=== PATIENT | female | born 1965 | race Caucasian/White ===

== ENCOUNTER 2017-06-17 01:37 | Inpatient (IN) | payer BC ==
[~2017-06-17] VITALS: Ht 170.2 cm; Wt 121.6 kg
[2017-06-17] MEDS ORDERED: diphenhydrAMINE HCL 50 MG/ML VIAL IM ONE (02:15)
[2017-06-17] MEDS ORDERED: OLANZapine IM 10 MG VIAL IM ONE (02:15)
[2017-06-17 02:32] LABS: AUTOMATED NEUTROPHIL # 5.3 TH/MM3 (1.8-7.7); BASOPHIL # 0.1 TH/MM3 (0-0.2); BASOPHIL % 0.9 % (0.0-2.0); EOSINOPHIL # 0.2 TH/MM3 (0-0.4); HEMATOCRIT 38.9 % (35.0-46.0); HEMOGLOBIN 13.7 GM/DL (11.6-15.3); LYMPH % 33.8 % (9.0-44.0); LYMPHOCYTE # 3.3 TH/MM3 (1.0-4.8); MEAN CELL VOLUME 89.1 FL (80.0-100.0); MEAN CORPUSCULAR HEMOGLOBIN 31.3 PG (27.0-34.0); MEAN CORPUSCULAR HGB CONC 35.1 % (32.0-36.0); MEAN PLATELET VOLUME 7.9 FL (7.0-11.0); MONO % 8.8 % (0.0-8.0); MONOCYTE # 0.8 TH/MM3 (0-0.9); NEUT % 54.5 % (16.0-70.0); PLATELET COUNT 333 TH/MM3 (150-450); RED BLOOD COUNT 4.36 MIL/MM3 (4.00-5.30); WHITE BLOOD COUNT 9.7 TH/MM3 (4.0-11.0)
[2017-06-17] MEDS ORDERED: BUPR150CR PO (02:37)
[2017-06-17] MEDS ORDERED: VIST25CA PO (02:37)
[2017-06-17] MEDS ORDERED: CETI10 PO (02:37)
[2017-06-17 02:51] LABS: ALBUMIN 4.1 GM/DL (3.4-5.0); ALT (GPT) 54 U/L (10-53); AST (GOT) 42 U/L (15-37); BICARBONATE 22.5 MEQ/L (21.0-32.0); BLOOD UREA NITROGEN 14 MG/DL (7-18); CALCIUM 8.9 MG/DL (8.5-10.1); CHLORIDE 107 MEQ/L (98-107); CREATININE 0.89 MG/DL (0.50-1.00); GLOMERULAR FILTRATION RATE 67 ML/MIN (>89); GLUCOSE,RANDOM 168 MG/DL (74-106); SODIUM (NA) 140 MEQ/L (136-145)
[2017-06-17 02:54] LABS: ALKALINE PHOSPHATASE 108 U/L (45-117); TOTAL BILIRUBIN ADULT 0.4 MG/DL (0.2-1.0); TOTAL PROTEIN 8.4 GM/DL (6.4-8.2)
--- NOTE | 2017-06-17 03:24 | PD ---
HPI Chief Complaint: Psychiatric Symptoms Time Seen by Provider: 01:52 Travel History International Travel<30 days: No Contact w/Intl Traveler<30days: No Traveled to known affect area: No History of Present Illness HPI 51-year-old white female presents to emergency department accompanied by her mother and sister for evaluation. According to family and the patient they had just come to [facility] this past week to visit with her sister. Prior to leaving [place] the patient had been noting to be not sleeping. She has been hypervigilant. She has progressively gotten more agitated, and psychotic. She is now talking erratically, having flight of ideas, and flapping her arms as if she is a Bird. The patient here is acutely psychotic and confused. The patient is not making much sense. Any significant history is not obtainable at this time. [facility] Past Medical History Narrative Medical Chronic back pain, depression, anxiety, Tetanus Vaccination: < 5 Years ?: Not Past Surgical History Narrative Surgical Lumbar nerve stimulator, bilateral myringotomy tubes Ear Surgery: Yes Other Surgery: Yes Social History Alcohol Use: No Tobacco Use: No Substance Use: No (PER FAMILY) Allergies-Medications (Allergen,Severity, Reaction): Coded Allergies: No Known Allergies (Unverified , 06/17/17) Reported Meds & Prescriptions Reported Meds & Active Scripts Active Reported Wellbutrin SR 12 HR (Bupropion HCl) 150 Mg Tab 150 Mg PO Q12HR Cetirizine (Cetirizine HCl) 10 Mg Tab 10 Mg PO DAILY Vistaril (Hydroxyzine Pamoate) 25 Mg Cap 25 Mg PO TID PRN Review of Systems ROS Limitations: Psychotic Physical Exam Narrative GENERAL: Well-nourished, well-developed patient. SKIN: Warm and dry. HEAD: Normocephalic and atraumatic. EYES: No scleral icterus. No injection or drainage. ENT: No nasal drainage noted. Mucous membranes pink. Airway patent. NECK: Supple, trachea midline. Moves head freely without obvious discomfort. CARDIOVASCULAR: Regular rate and rhythm without murmurs, gallops, or rubs. RESPIRATORY: Breath sounds equal bilaterally. No accessory muscle use. GASTROINTESTINAL: Abdomen soft, non-tender, nondistended. EXTREMITIES: No cyanosis or edema. BACK: Nontender without obvious deformity. No CVA tenderness. NEURO: Patient is alert and oriented. no sensorimotor deficits. Nonfocal. Normal speech. PSYCH: Acutely bizarre and psychotic Data Data Orders Orders Complete Blood Count With Diff (06/17/17 02:09) Comprehensive Metabolic Panel (06/17/17 02:09) Urinalysis - C+S If Indicated (06/17/17 02:09) Ed Urine Pregnancytest Poc (06/17/17 02:09) Psych Screen (06/17/17 02:09) Drug Screen, Random Urine (06/17/17 02:09) Alcohol (Ethanol) (06/17/17 02:09) Olanzapine Inj (Zyprexa Inj) (06/17/17 02:15) Diphenhydramine Inj (Benadryl Inj) (06/17/17 02:15) Labs Laboratory Tests Test 06/17/17 02:20 White Blood Count 9.7 TH/MM3 Red Blood Count 4.36 MIL/MM3 Hemoglobin 13.7 GM/DL Hematocrit 38.9 % Mean Corpuscular Volume 89.1 FL Mean Corpuscular Hemoglobin 31.3 PG Mean Corpuscular Hemoglobin Concent 35.1 % Red Cell Distribution Width 13.0 % Platelet Count 333 TH/MM3 Mean Platelet Volume 7.9 FL Neutrophils (%) (Auto) 54.5 % Lymphocytes (%) (Auto) 33.8 % Monocytes (%) (Auto) 8.8 % Eosinophils (%) (Auto) 2.0 % Basophils (%) (Auto) 0.9 % Neutrophils # (Auto) 5.3 TH/MM3 Lymphocytes # (Auto) 3.3 TH/MM3 Monocytes # (Auto) 0.8 TH/MM3 Eosinophils # (Auto) 0.2 TH/MM3 Basophils # (Auto) 0.1 TH/MM3 CBC Comment DIFF FINAL Differential Comment MDM Medical Decision Making Medical Screen Exam Complete: Yes Emergency Medical Condition: Yes Medical Record Reviewed: Yes Differential Diagnosis MDM: High Differential diagnoses: Schizophrenia, schizoaffective disorder, bipolar, anxiety, depression, adjustment reaction, mood disorder NOS, ODD, depressive disorder NOS, dementia, dementia with agitation, psychosis NOS, substance induced mood disorder, DMDD, Asperger syndrome, infection,electrolyte abnormality, malingering. Narrative Course Mental health screening discussed with the patient. Psychiatric screen ordered. The patient is acutely psychotic. She is placed under Butts act to ensure patient's safety. She does not have the capacity to sign in voluntarily today. The patient is medicated with Zyprexa 10 mg IM and Benadryl 50 mg IM. The patient has been medically cleared. This is bipolar manic phase with psychosis Diagnosis Primary Impression: Bipolar affective disorder, current episode manic with psychotic symptoms Additional Impression: Medical clearance for psychiatric admission Condition: Espinoza Wolf Jun 17, 2017 03:24
[2017-06-17 04:22] VITALS: BP 115/56; PULSE 78; RESP 15; O2SAT 98
[2017-06-17] MEDS ORDERED: BENZTROPINE MESYLATE 2 MG/2 ML VIAL IM PRN (04:45)
[2017-06-17] MEDS ORDERED: BENZTROPINE MESYLATE 1 MG TAB PO PRN (04:45)
[2017-06-17] MEDS ORDERED: ALUMINUM/MAGNESIUM/SIMETH 30 ML CUP PO PRN (04:45)
[2017-06-17] MEDS ORDERED: ACETAMINOPHEN 325 MG TAB PO PRN (04:45)
[2017-06-17] MEDS ORDERED: NICOTINE 21 MG/24 HR PATCH T-DERMAL PRN (04:45)
[2017-06-17] MEDS ORDERED: MAGNESIUM HYDROXIDE SUSP 30 ML CUP PO PRN (04:45)
[2017-06-17 05:04] LABS: BILIRUBIN, URINE NEG (NEG); BLOOD, URINE NEG (NEG); GLUCOSE,URINE NEG (NEG); KETONE, URINE 40 mg/dL (NEG); MUCUS URINE FEW /lpf (OCC); NITRITE,URINE NEG (NEG); SQUAMOUS EPITHELIAL CELL URINE 2 /hpf (0-5); URINE COLOR YELLOW (YELLW/STRAW); URINE LEUKOCYTE ESTERASE NEG (NEG)
[2017-06-17 05:55] VITALS: BP 146/85; PULSE 88; RESP 18; TEMP 98.1
[2017-06-17] MEDS: REMOVE OLD PATCH T-DERMAL SCH (09:00)
--- NOTE | 2017-06-17 12:52 | HHI.HP ---
Provisional Diagnosis Admission Date Jun 17, 2017 at 04:36 [place] I. 1. Brief psychotic disorder, rule-out catatonic excitement Rule-out mood disorder with psychotic features such as bipolar disorder Rule-out psychosis due to C Rule-out psychosis due to a substance Rule-out primary psychotic disorder [place] II. Deferred Certification of Person's Competence To Provide Express and Informed Consent I have personally examined Shanta Prajapati , a person being served at [facility] on, Jun 17, 2017 12:52. Express and informed consent means consent voluntarily given in writing, by a competent person, after sufficient explanation and disclosure of the subject matter involved to enable the person to make a knowing and willful decision without any element of force, fraud, deceit, duress, or other form of constraint or coercion. This person is 18 years of age or older, is not now known to be incompetent to consent to treatment with a guardian advocate, and does not have a health care surrogate or proxy currently making medical treatment decisions. I have found this person to be one of the following: [] Competent to provide express and informed consent, as defined above, for voluntary admission to this facility and is competent to provide express and informed consent for treatment. He/she has the consistent capacity to make well reasoned, willful, and knowing decisions concerning his or her medical or mental health treatment. The person fully and consistently understands the purpose of the admission for examination/placement and is fully capable of personally exercising all rights assured [place] [x] Incompetent to provide express and informed consent to voluntary admission, and this is incompetent to provide express and informed consent to treatment. The person must be transferred to involuntary status and a petition for a guardian advocate filed with the Circuit Court. [] Refusing to provide express and informed consent to voluntary admission but is competent to provide express and informed consent for treatment. The person must be discharged or transferred to involuntary status. Form shall be completed within 24 hours of a person's arrival at the receiving facility and filed in the clinical record of each person: 1. Admitted on a voluntary basis 2. Permitted to provide express and informed consent to his/her own treatment 3. Allowed to transfer from involuntary to voluntary status 4. Prior to permitting a person to consent to his or her own treatment after having been previously found incompetent to consent to treatment. History of Present Illness Capacity: Lacks Capacity Psych Chief Complaint: psychosis/behavioral disorganization HPI Ms. Prajapati is a 51-year-old female with no known past psychiatric history who was brought into the ED by her family for psychiatric evaluation. Per the ED provider's note, patient's behavior has been deteriorating over the last week or so. Patient was Butts acted by the ED provider and admitted to the inpatient psychiatric unit. Reviewing the electronic medical record, I note this is patient's first visit to [place]. Patient seen and examined with nurse. Chart reviewed. Case discussed with nursing staff who reports the patient has been confused and frankly psychotic. She has been flapping her arms like wings on the unit. On my evaluation today, the patient is wandering around the unit in a dreamlike state. Affect is quite labile, and the patient becomes tearful at intervals for no discernible reason. She gesticulates with her arm as if performing semaphore while saying "international lifestyles of the famous, hurricane, stimulator." Patient appears internally stimulated, and when I ask about AVH, patient only replies " I need less color." She denies SI/HI but seems unreliable to contract for safety in her present state. Thought process exceedingly disorganized, and it is difficult to ascertain whether there is delusional material underlying as a consequence of her degree of thought disorganization. In addition to the gesticulation with her arms, she is noted to wander around the unit backwards. She gives the date as "years" and the location as [place] Psychiatric interview is severely limited by her degree of thought disorganization. I am unable to obtain any past psychiatric, family, chemical dependency or social history from this patient at this time as a consequence of her thought disorganization. She does not verbalize any physical complaints. Given the patient's degree of psychiatric impairment, I endeavor first to obtain collateral information from her mother at the number listed in the EMR. I have left a generic voicemail requesting a call back. I then endeavored to reach out to the patient's sister Lorraine. Lorraine reports that the patient has no psychiatric history to speak of and had been in her usual state of health until about a week ago. She began to sleep poorly and speak more rapidly. She began to exhibit the gesticulating behaviors around Thursday of this week. Yesterday, patient became obsessed with the electronics in Lorraine's home, with whom she had been staying, and told Lorraine that she believed that there were security devices in the [facility]. Lorraine noted patient was frankly responding to internal stimuli. No recent med changes. Patient has been on Wellbutrin in the past for smoking cessation and hydroxyzine for dermatologic issues. Lorraine does not suspect substance use in patient. Patient has a paternal aunt who was institutionalized and a niece with epilepsy. She has no personal history of MS, seizure or other neurologic or medical conditions besides having a spinal stimulator for back pain and unilateral deafness. Lorraine is agreeable to serving as HCS and is agreement with plan as outlined below. Review of Systems ROS Limitations: Altered Mental Status, Psychotic, Poor Historian Other Limited ROS because of mental status. Past Psych History Psychological trauma history Unable to obtain given thought disorganization. Violence risk - others (6 mos) Concern for elevated risk. Possible catatonic excitement renders patient unpredictable. Violence risk - self (6 mos) Concern for elevated risk. Possible catatonic excitement renders patient unpredictable. Concern also for self-care deficit in current state. Substance Abuse History Drugs/Alcohol past 12 months Unable to obtain from patient given thought disorganization Past Family Social History Coded Allergies: No Known Allergies (Unverified , 06/17/17) Past Medical History See EMR. PMH as provided by sister, above. Reported Medications Bupropion HCl ER 12 HR (Wellbutrin SR 12 HR) 150 Mg Tab, 150 MG PO Q12HR for Control Depression, TAB 0 Refills 06/17/17 Cetirizine (Cetirizine) 10 Mg Tab, 10 MG PO DAILY for Allergies, TAB 0 Refills 06/17/17 Hydroxyzine Pamoate (Vistaril) 25 Mg Cap, 25 MG PO TID Y for ANXIETY, CAP 0 Refills 06/17/17 Current Medications Medications (Trade) Dose Ordered Sig/Yari Route Start Time Stop Time Status Last Admin (Ativan) 1 mg Q6H PRN PO 06/17/17 04:45 (Ativan Inj) 1 mg Q6H PRN IM 06/17/17 04:45 (Benadryl) 50 mg HS PRN PO 06/17/17 04:45 (Tylenol) 650 mg Q4H PRN PO 06/17/17 04:45 (Milk Of Magnesia Liq) 30 ml DAILY PRN PO 06/17/17 04:45 (Mag-Al Plus Susp Liq) 30 ml Q6H PRN PO 06/17/17 04:45 (Habitrol 21 Mg Patch.24 Hr) 1 patch DAILY PRN T-DERMAL 06/17/17 04:45 (Cogentin) 1 mg Q12H PRN PO 06/17/17 04:45 (Cogentin Inj) 1 mg Q12H PRN IM 06/17/17 04:45 Miscellaneous Information 1 DAILY T-DERMAL 06/17/17 09:00 Family Psych History Unable to obtain from patient given thought disorganization Social History Unable to obtain from patient given thought disorganization Patient's Strengths (min. 2) In a monitored setting. Supportive family. Physical Exam Physical examination completed by ED provider. On my examination today, the patient appears to be in no acute physical distress. She exhibits seemingly purposeless movements as noted above but displays no posturing, no stupor, no negativism. No other motor abnormalities noted. Labs and vitals reviewed: Vital Signs Vital Signs Date Time Temp Pulse Resp B/P (MAP) Pulse Ox O2 Delivery O2 Flow Rate FiO2 06/17/17 05:55 98.1 88 18 146/85 (105) 06/17/17 04:22 98 Room Air Lab Results Item Value Date Time White Blood Count 9.7 TH/MM3 06/17/17 022 Hemoglobin 13.7 GM/DL 06/17/17 022 Platelet Count 333 TH/MM3 06/17/17 022 Erythrocyte Sedimentation Rate 11 mm/hr 06/17/17 022 Sodium Level 140 MEQ/L 06/17/17 022 Potassium Level 3.8 MEQ/L 06/17/17 022 Chloride Level 107 MEQ/L 06/17/17 022 Carbon Dioxide Level 22.5 MEQ/L 06/17/17 022 Blood Urea Nitrogen 14 MG/DL 06/17/17 022 Creatinine 0.89 MG/DL 06/17/17 022 Estimat Glomerular Filtration Rate 67 ML/MIN L 06/17/17 0220 Aspartate Amino Transf (AST/SGOT) 42 U/L H 06/17/17 0220 Alanine Aminotransferase (ALT/SGPT) 54 U/L H 1/17/18 0220 Alkaline Phosphatase 108 U/L 06/17/17219 Vitamin B12 Level 364 PG/ML 06/17/17219 25-Hydroxy Vitamin D Total 17.0 ng/ML L 06/17/17219 Urine Opiates Screen NEG 06/17/17454 Urine Barbiturates Screen NEG 06/17/17454 Urine Amphetamines Screen NEG 06/17/17454 Urine Benzodiazepines Screen NEG 06/17/17454 Urine Cocaine Screen NEG 06/17/17454 Urine Cannabinoids Screen NEG 06/17/17454 Ethyl Alcohol Level LESS THAN 3 MG/DL 06/17/17219 Labs reviewed. Urinalysis planned. No head imaging obtained. ED [id number]-[id number] test negative. Mental Status Examination Appearance: Disheveled Consciousness: Alert Orientation: Person Motor Activity: Other (motor exam as noted above) Speech: Incoherent Language: Perseveration Fund of Knowledge: Inadequate Attention and Concentration: Inadequate Memory: Impaired (not formally assessed but suspect psychosis interferes) Mood: Other (unable to assess as patient cannot communicate her mental state) Affect: Labile Thought Process & Associations: Disorganized Thought Content: Bizarre thinking Hallucination Type: Other (appears frankly internally stimulated) Delusion Type: Other (unable to ascertain because of degree of thought disorganization) Suicidal Ideation: No (unreliable to contract for safety) Homicidal Ideation: No (unreliable to contract for safety) Insight: Poor Judgment: Poor Assessment & Plan Problem List: (1) Brief psychotic disorder ICD Codes: F23 - Brief psychotic disorder Assessment & Plan 51-year-old female with history as detailed above brought in voluntarily by family for psychiatric evaluation, now under Butts act. On my examination today, patient presents with markedly disorganized thought and behavior with associated affective lability. Collateral from patient's sister indicates decompensation over the last week or so. Differential diagnosis for current symptomatology includes mood disorder with psychotic features, psychosis due to general medical or neurological condition, psychosis due to a substance, primary psychotic disorder. It is also possible that the patient is experiencing catatonic excitement in the setting of one of the above disorders. I think it is prudent to pursue further workup before initiating a course of treatment and will plan to admit the patient to the inpatient psychiatric unit for this purpose as well as for stabilization and safety. --Admit inpatient --Involuntary status. I have completed first opinion. Consult for second opinion. Request healthcare surrogate and guardian advocate. --Hold off on scheduled psychotropics at this time pending further workup. --Initiate medical/neurological workup for patient's symptoms. I have already ordered laboratory work including an extended urine toxicology screen, ammonia, TRINI, HIV, RPR, hepatitis screen and CK. I checked with the laboratory and these were not drawn, possibly because the patient refused. I have obtained permission from the patient's healthcare surrogate to temporarily restrain the patient to obtain laboratories if needed, and I have asked the laboratory to send a zigzag stitcher around to try to get these labs. --Check EEG. Check MRI brain with and without contrast. --Consult to neurology to assess for possible neurological causes for patient's symptoms. --Check EKG for QTc. --Ativan as needed for anxiety, Cogentin as needed for EPS, Benadryl as needed for sleep --Vitals every shift --Counselor to see and obtain further collateral --Disposition planning --Estimated length of stay: 7-9 days Discharge Planning Pending psychiatric stabilization Request HC Surrog/Guard Advoc?: Yes Brandan Stephens MD Jun 17, 2017 12:52
[2017-06-17] MEDS: LORazepam 2 MG/ML VIAL IM PRN (19:41)
--- NOTE | 2017-06-17 22:45 | MB ---
cc: DEBBIE CRUZ M.D. DATE OF CONSULTATION 06/17/2017 DATE OF 1965, 51 years old REASON FOR CONSULTATION Possible seizure. HISTORY OF THE PRESENT ILLNESS The patient's history taken from the chart. She is not able to give me an appropriate history, very confused and disorganized thought. But she is a 51-year-old woman with a known history of psychiatric illness. Apparently deteriorating over the last week. Butts Acted. The patient is actually in the day room now. She is ____ and talking to other residents here, making no sense whatsoever. Laughing, gesticulating. Cannot get any history from her. PAST MEDICAL HISTORY Unable to obtain. SOCIAL HISTORY Unknown. FAMILY HISTORY Unknown. MEDICATIONS Current meds are: 1. Bupropion. 2. Cetirizine. 3. Hydroxyzine. 4. Lorazepam. 5. Magnesium. 6. Nicotine patch. 7. Cogentin. She is not on the cetirizine here. And no longer on olanzapine. PHYSICAL EXAMINATION VITAL SIGNS: Her vitals temperature 98.1, pulse 88, respiratory rate 18, blood pressure 146/85. GENERAL: She is awake and alert. She can tell me her name but she is talking about things that make absolutely no sense. She is walking around the unit. NEUROLOGIC: Pupils reactive. Face symmetrical. Poor oral hygiene. Motor olivera no deficits. Gait normal. LABORATORY DATA CBC is unremarkable. Sed rate is 11. Chemistry GFR 67, glucose 168, AST 42, ALT 54. B12 364. Vitamin D is 17. Toxicology is pending. Mostly everything is pending. Negative for opiates, negative benzos, cocaine, cannabinoids. No alcohol. No barbiturates but the other ones are still pending. Urine no culture indicated. IMPRESSION A 51-year-old woman with what appears psychotic disorder. She is undergoing workup via MRI, EEG. Her B12 a bit low, I would go ahead and supplement that. I would not put her on any antiepileptics, there is no evidence of any seizure. Certainly if there is the EEG findings or MRI findings of any concern further recommendations neurologically will be made but at this point in time continue current care. Replace her B12, put her on oral 1000 mcg daily and replace her vitamin D. Workup is in progress. MD KARINE Adames /4:50 PM /10:23 PM
[2017-06-18 05:49] VITALS: BP 132/63; PULSE 85; RESP 17; TEMP 97.6; O2SAT 96
[2017-06-18] MEDS: REMOVE OLD PATCH T-DERMAL SCH (09:00)
[2017-06-18 09:28] LABS: ALBUMIN 4.1 GM/DL (3.4-5.0); AST (GOT) 49 U/L (15-37); BICARBONATE 22.3 MEQ/L (21.0-32.0); BLOOD UREA NITROGEN 15 MG/DL (7-18); CHLORIDE 109 MEQ/L (98-107); CREATININE 0.81 MG/DL (0.50-1.00); GLOMERULAR FILTRATION RATE 74 ML/MIN (>89); GLUCOSE,RANDOM 121 MG/DL (74-106); SODIUM (NA) 141 MEQ/L (136-145)
[2017-06-18 09:29] LABS: ALT (GPT) 54 U/L (10-53); CHOLESTEROL 181 MG/DL (120-200)
[2017-06-18 09:43] LABS: ALKALINE PHOSPHATASE 102 U/L (45-117); CHOLESTEROL/ HDL RATIO 3.94 RATIO; HDL CHOLESTEROL 45.9 MG/DL (40.0-60.0); LDL CHOLESTEROL 116 MG/DL (0-99); TOTAL BILIRUBIN ADULT 0.7 MG/DL (0.2-1.0); TOTAL PROTEIN 8.3 GM/DL (6.4-8.2); TRIGLYCERIDES 98 MG/DL (42-150)
--- NOTE | 2017-06-18 10:00 | HHI.PYPN ---
Subjective Chief Complaint: psychosis/behavioral disorganization Remarks Patient seen and examined with nurse. Chart reviewed. PO intake poor. Case discussed with nursing staff who reports patient is intrusive, bizarre and tearful at times. On my exam, patient continues to display severely disorganized thought process. Speech is rambling, bordering on word salad at times. She continues to gesticulate at intervals. She does not verbalize any SI or HI. No physical complaints. We tried to get the patient to EEG this morning, and she required Zyprexa 5mg IM to calm her enough to tolerate the procedure. No side effects from this medication. Following EEG, I ordered Ativan challenge for possible catatonic excitement. I have returned to the unit to evaluate the patient ~30min after Ativan IM. I find the patient essentially unchanged. She is marginally more coherent in her speech but remains extremely disorganized overall. Negative response to Ativan challenge in my assessment. I did try to reach out to patient's sister/HCS to discuss the case. Left generic requesting a call back. Review of Systems ROS Limitations: Psychotic, Poor Historian Except as stated in HPI: all other systems reviewed are Neg Mental Status Examination Appearance: Disheveled Consciousness: Alert Orientation: Person Motor Activity: Other (Continues to gesticulate at times. No other motor abnormalities noted.) Speech: Incoherent Language: Perseveration Fund of Knowledge: Inadequate Attention and Concentration: Inadequate Memory: Impaired (not formally assessed; psychosis interferes) Mood: Other (again unable to assess as patient cannot communicate her mental state) Affect: Labile Thought Process & Associations: Disorganized Thought Content: Bizarre thinking Hallucination Type: Other (remains int stim) Delusion Type: Other (unable to ascertain because of degree of thought disorganization) Suicidal Ideation: No (unreliable to contract for safety) Homicidal Ideation: No (unreliable to contract for safety) Insight: Poor Judgment: Poor Results Labs Item Value Date Time Erythrocyte Sedimentation Rate 11 mm/hr 06/17/17 022 25-Hydroxy Vitamin D Total 17.0 ng/ML L 06/17/17 022 Vitamin B12 Level 364 PG/ML 06/17/17219 Ammonia 17 MCMOL/L 06/18/17 0845 Rapid Plasma Reagin NON-REACTIVE 06/18/17 0845 HIV (1&2) Antibody NEGATIVE 06/18/17 0845 Vitamin D level low. Vitamin B12 level on lower side. I have started repletion of both per neurology recs. Awaiting TRINI, extended tox, and hepatitis panel. Item Value Date Time Estimat Glomerular Filtration Rate 74 ML/MIN L 06/18/17 0845 Total Creatine Kinase 1642 U/L H 06/18/17 0845 CK elevated but renal function remains intact. Vitals/IOs Vital Signs Date Time Temp Pulse Resp B/P (MAP) Pulse Ox O2 Delivery O2 Flow Rate FiO2 06/18/17 05:49 97.6 85 17 132/63 (86) 96 06/17/17 04:22 Room Air Assessment & Plan Problem List: (1) Brief psychotic disorder ICD Codes: F23 - Brief psychotic disorder Assessment & Plan Follow up EEG. We will endeavor to obtain MRI brain this afternoon (may need to be delayed as spinal stimulator needs to be temporarily turned off for study , I am told). Although components of workup are pending, I think severity of patient's symptoms argue in favor of empiric treatment of psychosis. Given BMI , I think a relatively weight neutral antipsychotic should be preferred. I will start Abilify 10mg daily with plans to titrate to effect. Encourage fluids and consult hospitalist for CK elevation. Patient may require transfer to [facility] for IVF. Trend daily CK and BMPs. Neurology input noted and appreciated. Continue to monitor on inpatient unit. Continue other meds and care as ordered. Justification for Cont. Inpt. Med changes. Impairment in self-care. Impairment in reality construction. High risk for decompensation in less restrictive environment. Discharge Planning Pending psychiatric stabilization. Request HC Surrog/Guard Advoc?: Yes Brandan Stephens MD Jun 18, 2017 10:00
[2017-06-18] MEDS ORDERED: OLANZapine IM 10 MG VIAL IM ONE ×2 (10:38→12:30)
--- NOTE | 2017-06-18 12:32 | PD.PSY.CON ---
Provisional Diagnosis Admission Date Jun 17, 2017 at 04:36 Shepherd I. 1. Brief psychotic disorder, rule-out catatonic excitement Rule-out mood disorder with psychotic features such as bipolar disorder Rule-out psychosis due to C Rule-out psychosis due to a substance Rule-out primary psychotic disorder Shepherd II. Deferred History of Present Illness Service Psychiatry Consult Requested By Dr. Stephens Reason for Consult Second opinion Primary Care Physician Unknown HPI Ms. Prajapati is a 51-year-old female with no known past psychiatric history who was brought into the ED by her family for psychiatric evaluation. Per the ED provider's note, patient's behavior has been deteriorating over the last week or so. Patient was Butts acted by the ED provider and admitted to the inpatient psychiatric unit. Reviewing the electronic medical record, I note this is patient's first visit to [facility].Patient seen and examined with nurse. Chart reviewed. Case discussed with nursing staff who reports the patient has been confused and frankly psychotic. She has been flapping her arms like wings on the unit. On my evaluation today, the patient is wandering around the unit in a dreamlike state. Affect is quite labile, and the patient becomes tearful at intervals for no discernible reason. She gesticulates with her arm as if performing semaphore while saying "international lifestyles of the famous, hurricane, stimulator." Patient appears internally stimulated, and when I ask about AVH, patient only replies "I need less color." She denies SI/ HI but seems unreliable to contract for safety in her present state. Thought process exceedingly disorganized, and it is difficult to ascertain whether there is delusional material underlying as a consequence of her degree of thought disorganization. In addition to the gesticulation with her arms, she is noted to wander around the unit backwards. She gives the date as "years" and the location as "[place] Psychiatric interview is severely limited by her degree of thought disorganization. I am unable to obtain any past psychiatric, family, chemical dependency or social history from this patient at this time as a consequence of her thought disorganization. She does not verbalize any physical complaints. The patient is a 51 years old woman, domiciled with her mother,, unemployed, single, without any previous psychiatric history, who was brought to the hospital on the Butts act due to psychotic behavior. Patient was consulted to me for second opinion. The patient was seen in the recreational area of the unit. Patient is cooperative, but very disorganized. The patient is restless, talkative, but doesn't make any sense. She says that she has and his stimulator in her brain "I am connected to an stimulator #3 receiving stimulating ways". Patient denies suicidal and homicidal ideation, she denies visual and auditory hallucinations. She does not seem to be acutely paranoid, agitated or aggressive, but talkative at times pressured. Review of Systems Eyes: DENIES: Blurred vision, Diplopia, Eye inflammation, Eye pain, Vision loss , Photosensitivity, Double Vision Ears, nose, mouth, throat: DENIES: Tinnitus, Hearing loss, Vertigo, Nasal discharge, Oral lesions, Throat pain, Hoarseness, Ear Pain, Running Nose, Epistaxis, Sinus Pain, Toothache, Odynophagia Respiratory: DENIES: Apneas, Cough, Snoring, Wheezing, Hemoptysis, Sputum production, Shortness of breath Cardiovascular: DENIES: Chest pain, Palpitations, Syncope, Dyspnea on Exertion , PND, Lower Extremity Edema, Orthopnea, Claudication Gastrointestinal: DENIES: Abdominal pain, Black stools, Bloody stools, Constipation, Diarrhea, Nausea, Vomiting, Difficulty Swallowing, Anorexia Genitourinary: DENIES: Abnormal vaginal bleeding, Dysmenorrhea, Dyspareunia, Sexual dysfunction, Urinary frequency, Urinary incontinence, Urgency, Hematuria , Dysuria, Nocturia, Vaginal discharge Musculoskeletal: DENIES: Joint pain, Muscle aches, Stiffness, Joint Swelling, Back pain, Neck pain Hematologic/lymphatic: DENIES: Bruising, Lymphadenopathy Immunologic/allergic: DENIES: Eczema, Urticaria Neurologic: DENIES: Abnormal gait, Headache, Localized weakness, Paresthesias, Seizures, Speech Problems, Tremor, Poor Balance Psychiatric: COMPLAINS OF: Mood changes, Delusions Past Family Social History Coded Allergies: No Known Allergies (Unverified , 06/17/17) Reported Medications Bupropion HCl ER 12 HR (Wellbutrin SR 12 HR) 150 Mg Tab, 150 MG PO Q12HR for Control Depression, TAB 0 Refills 06/17/17 Cetirizine (Cetirizine) 10 Mg Tab, 10 MG PO DAILY for Allergies, TAB 0 Refills 06/17/17 Hydroxyzine Pamoate (Vistaril) 25 Mg Cap, 25 MG PO TID Y for ANXIETY, CAP 0 Refills 06/17/17 Current Medications Medications (Trade) Dose Ordered Sig/Yari Route Start Time Stop Time Status Last Admin (Ativan) 1 mg Q6H PRN PO 06/17/17 04:45 (Ativan Inj) 1 mg Q6H PRN IM 06/17/17 04:45 06/17/17 19:41 (Benadryl) 50 mg HS PRN PO 06/17/17 04:45 (Tylenol) 650 mg Q4H PRN PO 06/17/17 04:45 (Milk Of Magnesia Liq) 30 ml DAILY PRN PO 06/17/17 04:45 (Mag-Al Plus Susp Liq) 30 ml Q6H PRN PO 06/17/17 04:45 (Habitrol 21 Mg Patch.24 Hr) 1 patch DAILY PRN T-DERMAL 06/17/17 04:45 (Cogentin) 1 mg Q12H PRN PO 06/17/17 04:45 (Cogentin Inj) 1 mg Q12H PRN IM 06/17/17 04:45 Miscellaneous Information 1 DAILY T-DERMAL 06/17/17 09:00 (Vitamin B12) 1,000 mcg DAILY PO 06/18/17 09:00 (Vitamin D3) 2,000 units DAILY PO 06/18/17 09:00 (ZyPREXA INJ) 5 mg NOW ONCE IM 06/18/17 12:30 06/18/17 12:31 Patient's Strengths (min. 2) In a monitored setting. Supportive family. Physical Exam Vital Signs Vital Signs Date Time Temp Pulse Resp B/P (MAP) Pulse Ox O2 Delivery O2 Flow Rate FiO2 06/18/17 05:49 97.6 85 17 132/63 (86) 96 06/17/17 04:22 Room Air Lab Results Test 06/18/17 08:45 Blood Urea Nitrogen 15 MG/DL Creatinine 0.81 MG/DL Random Glucose 121 MG/DL Total Protein 8.3 GM/DL Albumin 4.1 GM/DL Calcium Level 9.0 MG/DL Alkaline Phosphatase 102 U/L Aspartate Amino Transf (AST/SGOT) 49 U/L Alanine Aminotransferase (ALT/SGPT) 54 U/L Total Bilirubin 0.7 MG/DL Sodium Level 141 MEQ/L Potassium Level 3.7 MEQ/L Chloride Level 109 MEQ/L Carbon Dioxide Level 22.3 MEQ/L Anion Gap 10 MEQ/L Estimat Glomerular Filtration Rate 74 ML/MIN Ammonia 17 MCMOL/L Total Creatine Kinase 1642 U/L Creatine Kinase MB 7.3 NG/ML Creatine Kinase MB % 0.4 % Triglycerides Level 98 MG/DL Cholesterol Level 181 MG/DL LDL Cholesterol 116 MG/DL HDL Cholesterol 45.9 MG/DL Cholesterol/HDL Ratio 3.94 RATIO Rapid Plasma Reagin NON-REACTIVE Mental Status Examination Appearance: Disheveled Consciousness: Alert Orientation: Person Motor Activity: Other (motor exam as noted above) Speech: Incoherent Language: Perseveration Fund of Knowledge: Inadequate Attention and Concentration: Inadequate Memory: Impaired (not formally assessed but suspect psychosis interferes) Mood: Other (unable to assess as patient cannot communicate her mental state) Affect: Labile Thought Process & Associations: Disorganized Thought Content: Bizarre thinking Hallucination Type: Other (appears frankly internally stimulated) Delusion Type: Other (unable to ascertain because of degree of thought disorganization) Suicidal Ideation: No (unreliable to contract for safety) Homicidal Ideation: No (unreliable to contract for safety) Insight: Poor Judgment: Poor Assessment & Plan Problem List: (1) Brief psychotic disorder ICD Codes: F23 - Brief psychotic disorder Assessment & Plan: I have seen and examined this patient, reviewed the documentation, I agree and concur with Dr. Stephens assessment and plan. Assessment & Plan Estimated LOS: days Request HC Surrog/Guard Advoc?: Yes Kalyan Armas MD Jun 18, 2017 12:32
[2017-06-18] MEDS ORDERED: LORazepam 2 MG/ML VIAL IM ONE (12:45)
--- NOTE | 2017-06-18 15:04 | EKG ---
Date Performed: 06/18/2017 Time Performed: 13:33:07 PTAGE: 51 years EKG: Sinus rhythm POSSIBLE LEFT ATRIAL ENLARGEMENT NONSPECIFIC ST & T-WAVE ABNORMALITY BORDERLINE ECG NO PREVIOUS TRACING DOCTOR: Sterling Winslow Interpretating Date/Time 06/18/2017 15:02:16
--- NOTE | 2017-06-18 15:24 | PD.CONS ---
HPI Service [facility] Consult Requested By Primary Care Physician Unknown Diagnoses: History of Present Illness Mrs. Prajapati is a 51-year-old female. She was admitted secondary to acute psychosis with hallucinations and possible gilbert. Medical consult was placed secondary to elevation in CK. Current CK levels are approximately 1600. History cannot be obtained from the patient. This degree of elevated creatinine kinase could be related to relative increases in motor function such as new exercising or light trauma, both of which could be related to her manic episode. She has no evidence of renal failure based on most recent lab work. Full history is unobtainable secondary to mental state of patient. Review of Systems ROS Limitations: Altered Mental Status, Unresponsive, Uncooperative, Psychotic , Poor Historian Past Family Social History Allergies: Coded Allergies: No Known Allergies (Unverified , 06/17/17) Past Medical History History of back pain History of depression History of anxiety Past Surgical History Lumbar nerve stimulator implantation History of Myringotomy Tubes Reported Medications Reported Meds & Active Scripts Active Reported Wellbutrin SR 12 HR (Bupropion HCl) 150 Mg Tab 150 Mg PO Q12HR Cetirizine (Cetirizine HCl) 10 Mg Tab 10 Mg PO DAILY Vistaril (Hydroxyzine Pamoate) 25 Mg Cap 25 Mg PO TID PRN Active Ordered Medications Administered Medications Medications (Trade) Dose Ordered Sig/Yari Route PRN Reason Start Time Stop Time Status Last Admin Dose Admin Lorazepam (Ativan Inj) 1 mg Q6H PRN IM MODERATE TO SEVERE ANXIETY 06/17/17 04:45 06/17/17 19:41 Family History Unable to obtain secondary to psychosis Social History No reports of alcohol abuse No reports of nicotine abuse No reports of illicit drug abuse Physical Exam Vital Signs Vital Signs Date Time Temp Pulse Resp B/P (MAP) Pulse Ox O2 Delivery O2 Flow Rate FiO2 06/18/17 05:49 97.6 85 17 132/63 (86) 96 Physical Exam GENERAL: NAD, A&Ox0 HEAD: Normocephalic. NECK: Supple, trachea midline. No lymphadenopathy. EYES: No scleral icterus. No injection or drainage. CARDIOVASCULAR: Regular rate and rhythm without murmurs, gallops, or rubs. RESPIRATORY: Breath sounds equal bilaterally. No accessory muscle use. GASTROINTESTINAL: Abdomen soft, non-tender, nondistended. MUSCULOSKELETAL: No cyanosis, or edema. SKIN: Warm and dry. NEURO: No focal neurological deficitis. Laboratory Laboratory Tests Test 06/18/17 08:45 Blood Urea Nitrogen 15 Creatinine 0.81 Random Glucose 121 Total Protein 8.3 Albumin 4.1 Calcium Level 9.0 Alkaline Phosphatase 102 Aspartate Amino Transf (AST/SGOT) 49 Alanine Aminotransferase (ALT/SGPT) 54 Total Bilirubin 0.7 Sodium Level 141 Potassium Level 3.7 Chloride Level 109 Carbon Dioxide Level 22.3 Anion Gap 10 Estimat Glomerular Filtration Rate 74 Ammonia 17 Total Creatine Kinase 1642 Creatine Kinase MB 7.3 Creatine Kinase MB % 0.4 Triglycerides Level 98 Cholesterol Level 181 LDL Cholesterol 116 HDL Cholesterol 45.9 Cholesterol/HDL Ratio 3.94 Rapid Plasma Reagin NON-REACTIVE HIV (1&2) Antibody NEGATIVE Result Diagram: 06/17/17 0220 06/18/17 0845 Assessment and Plan Problem List: (1) Rhabdomyolysis ICD Code: M62.82 - Rhabdomyolysis (2) Brief psychotic disorder ICD Code: F23 - Brief psychotic disorder (3) Bipolar affective disorder, current episode manic with psychotic symptoms ICD Code: F31.2 - Bipolar disorder, current episode manic severe with psychotic features Status: Acute Assessment and Plan 51-year-old female admitted secondary to acute psychotic disorder, we are consulted for rhabdomyolysis evaluation. Rhabdomyolysis Present status is mild Etiology is uncertain No signs of dehydration or renal failure Obtain repeat CK level tomorrow morning Follow CMP If trend is upward consider IV hydration If trend is downward no further monitoring will be needed Brief psychotic disorder Bipolar disorder Acute psychosis Management per psychiatry DVT prophylaxis No needed as patient is ambulatory Alvaro Weiss MD Jun 18, 2017 15:23
[2017-06-18] MEDS: CYANOCOBALAMIN 1,000 MCG TAB PO SCH (15:48)
[2017-06-18] MEDS: CHOLECALCIFEROL (VIT D3) 1000 UNIT TAB PO SCH (15:48)
[2017-06-18] MEDS: ARIPiprazole 10 MG TAB PO SCH (15:51)
[2017-06-18 16:17] LABS: HEMOGLOBIN A1C 6.7 % (4.3-6.0)
[2017-06-18 17:49] VITALS: BP 158/87; PULSE 95; RESP 18; TEMP 97.2; O2SAT 97
[2017-06-18] MEDS: LORazepam 2 MG/ML VIAL IM PRN (20:21)
[2017-06-18] MEDS: diphenhydrAMINE HCL 50 MG CAP PO PRN (20:21)
[2017-06-19 05:49] VITALS: BP 137/70; PULSE 91; RESP 18; TEMP 98; O2SAT 98
[2017-06-19] MEDS: CYANOCOBALAMIN 1,000 MCG TAB PO SCH (08:09)
[2017-06-19] MEDS: CHOLECALCIFEROL (VIT D3) 1000 UNIT TAB PO SCH (08:09)
[2017-06-19] MEDS: ARIPiprazole 10 MG TAB PO SCH (08:09)
[2017-06-19] MEDS: REMOVE OLD PATCH T-DERMAL SCH (08:09)
--- NOTE | 2017-06-19 09:44 | MG ---
cc: KAITY ABBOTT M.D. Lab No: [id number] Date: 06/19/2017 Age: ____ Sex: F Race: __ INDICATIONS Shanta Ramon is visiting from [place], got agitated, psychotic. MEDICATIONS 1. Benadryl 2. Wellbutrin 3. Vistaril DESCRIPTION Diffuse alpha and beta rhythms are noted. Some mild diffuse theta slowing is seen 6-7 Hz at times. No hemisphere asymmetry is noted. Movement artifact at times is noted and muscle artifact. Photic stimulation was performed without significant posterior driving. The patient was noted to be hallucinating, but did not correlate with any seizure activity. IMPRESSION Normal awake EEG. No evidence for a focal or diffuse abnormality including with hallucinations. MD PEPITO Lloyd/RAFAEL /9:23 AM /9:34 AM
--- NOTE | 2017-06-19 11:12 | HHI.PYPN ---
Subjective Chief Complaint: psychosis/behavioral disorganization Remarks Patient seen and examined with nurse and nursing students. Chart reviewed. Case discussed with nurse he reports patient remains nonsensical and tried to shower with her clothes on this morning. Case discussed in treatment team with counselor, recreation therapist and occupational therapist. On my examination today, the patient presents as slightly more organized. She does not demonstrate any gesticulation or other odd behaviors today. She remains somewhat intrusive. She denies AVH but appears a little internally preoccupied. Some thought blocking present. Denies SI or HI. She is quite concerned that her mother has although she has no evidence of this. She denies side effects from medications. No physical complaints. I have discussed treatment plan with the patient. Review of Systems ROS Limitations: Psychotic, Poor Historian Except as stated in HPI: all other systems reviewed are Neg Mental Status Examination Appearance: Disheveled (grooming is improving) Consciousness: Alert Orientation: Person, Place (approximate) Motor Activity: Other (no motor abnormalities noted) Speech: Other (speech is more relevant today) Language: Perseveration (less perseverative) Fund of Knowledge: Inadequate Attention and Concentration: Inadequate Memory: Impaired (psychosis interferes) Mood: Anxious Affect: Anxious Thought Process & Associations: Other (somewhat more organized today but still fairly disorganized overall) Thought Content: Bizarre thinking, Thought blocking Hallucination Type: Other (again appears internally stimulated) Delusion Type: Bizarre Suicidal Ideation: No (unreliable to contract for safety) Homicidal Ideation: No (unreliable to contract for safety) Insight: Poor Judgment: Poor Results Labs Labs reviewed. Awaiting BMP and CK from this morning. EEG preliminary read negative. Vitals/IOs Vital Signs Date Time Temp Pulse Resp B/P (MAP) Pulse Ox O2 Delivery O2 Flow Rate FiO2 06/19/17 05:49 98.0 91 18 137/70 (92) 98 06/17/17 04:22 Room Air Assessment & Plan Problem List: (1) Brief psychotic disorder ICD Codes: F23 - Brief psychotic disorder Assessment & Plan Titrate Abilify through the weekend to target psychosis. Follow-up final read of EEG. Nurse informs me that MRI will not be able to be performed as a consequence of patient's stimulator. I will cancel the MRI and order a head CT instead. Follow-up outstanding laboratories. Hospitalist input noted and appreciated, and I have discussed the case briefly with Dr. Shaikh from the hospitalist service. If the CK is not downtrending, we will plan to transfer the patient to the medical psychiatric unit for IV fluids. Continue to monitor on the high acuity unit in the meantime. Continue other medications and care as ordered. Justification for Cont. Inpt. Medication changes. Impairment in reality construction. High risk for decompensation in less restrictive environment. Discharge Planning Pending psychiatric stabilization. Request HC Surrog/Guard Advoc?: Yes Brnadan Stephens MD Jun 19, 2017 11:12
[2017-06-19 11:43] LABS: ALBUMIN 3.9 GM/DL (3.4-5.0); ALT (GPT) 56 U/L (10-53); AST (GOT) 50 U/L (15-37); BLOOD UREA NITROGEN 17 MG/DL (7-18); CALCIUM 9.1 MG/DL (8.5-10.1); CHLORIDE 103 MEQ/L (98-107); GLOMERULAR FILTRATION RATE 88 ML/MIN (>89); GLUCOSE,RANDOM 128 MG/DL (74-106); SODIUM (NA) 139 MEQ/L (136-145)
[2017-06-19 11:57] LABS: ALKALINE PHOSPHATASE 98 U/L (45-117); TOTAL BILIRUBIN ADULT 0.5 MG/DL (0.2-1.0); TOTAL PROTEIN 8.2 GM/DL (6.4-8.2)
--- NOTE | 2017-06-19 13:05 | RADRPT ---
EXAM DATE/TIME: 06/19/2017 12:53 [facility] COMPARISON: No previous studies available for comparison. INDICATIONS : Altered mental status. RADIATION DOSE: 42.59 CTDIvol (mGy) ; Patient motion MEDICAL HISTORY : SURGICAL HISTORY : Ear ENCOUNTER: Initial ACUITY: 1 day PAIN SCALE: 0/10 LOCATION: cranial TECHNIQUE: Multiple contiguous axial images were obtained of the head. Using automated exposure control and adj ustment of the mA and/or kV according to patient size, radiation dose was kept as low as reasonably a chievable to obtain optimal diagnostic quality images. DICOM format image data is available electro nically for review and comparison. FINDINGS: This study is moderately degraded by motion artifact limiting visualization. CEREBRUM: The ventricles are normal for age. No evidence of midline shift, mass lesion, hemorrhage or acute in farction. No extra-axial fluid collections are seen. POSTERIOR FOSSA: The cerebellum and brainstem are intact. The 4th ventricle is midline. The cerebellopontine angle i s unremarkable. EXTRACRANIAL: The visualized portion of the orbits is intact. SKULL: The calvaria is intact. No evidence of skull fracture. CONCLUSION: 1. Suboptimal exam secondary to motion artifact. 2. No evidence of hemorrhage or mass effect Negrito Shaw MD on June 19, 2017 at 13:01 Board Certified Radiologist. This report was verified electronically.
[2017-06-19] MEDS: LORazepam 1 MG TAB PO PRN ×2 (14:43→20:47)
--- NOTE | 2017-06-19 15:03 | PD.TTN ---
Patient Problems 1. Discharge planning 2. Medication compliance 3. Knowledge deficit 4. Lack of coping skills Progress Toward Goals Provider Present: Dr. Makenna Stephens Provider Input: Pt medication regiment has been adjusted to include Abilify. Psychiatric Counselors Present: NU Styles Psych Therapist Input: Pt remains psychotic, disorganized, bizarre, cooperative and wandering on unit. She presents with limited insight into condition and need for care. Pt presents with limited coping and emotional regulation skills. She has been compliant with medication regiment. She will be going home with family after discharge. Group Spec/RT/OT/COOK Present: DERRICK Batpiste Group Spec/RT/OT/COOK Input: Pt is unable to tolerate the group activities. Discharge Plan Pt will return home with her family after discharge and will be linked to outpatient follow up services. Documentation Scribe: NU Styles Jonathan LMHC Jun 19, 2017 15:02
[2017-06-19 15:58] LABS: ANA SCREEN NEG (NEG)
[2017-06-19 16:56] LABS: HEPATITIS B CORE AB IGM NEGATIVE (NEGATIVE); HEPATITIS B SURFACE ANTIGEN NEGATIVE (NEGATIVE); HEPATITIS C AB IgG NEGATIVE (NEGATIVE)
[2017-06-19 17:04] LABS: HEPATITIS A AB IGM NEGATIVE (NEGATIVE)
[2017-06-19 17:51] VITALS: BP 142/74; PULSE 102; RESP 19; TEMP 98.1; O2SAT 97
[2017-06-19] MEDS: diphenhydrAMINE HCL 50 MG CAP PO PRN (20:47)
[2017-06-20 06:03] VITALS: BP 164/77; PULSE 90; RESP 20; TEMP 97.7; O2SAT 98
[2017-06-20] MEDS: CYANOCOBALAMIN 1,000 MCG TAB PO SCH (07:53)
[2017-06-20] MEDS: CHOLECALCIFEROL (VIT D3) 1000 UNIT TAB PO SCH (07:53)
[2017-06-20] MEDS ORDERED: ARIPiprazole 15 MG TAB PO SCH (09:00)
[2017-06-20] MEDS: REMOVE OLD PATCH T-DERMAL SCH (09:00)
[2017-06-20 10:34] LABS: BICARBONATE 24.1 MEQ/L (21.0-32.0); CALCIUM 9.2 MG/DL (8.5-10.1); CREATININE 0.61 MG/DL (0.50-1.00)
--- NOTE | 2017-06-20 12:04 | HHI.PR ---
Subjective Remarks The patient was ambulating. She seemed confused. Nursing reports that she has not been sleeping well. The patient had no acute complaints. Objective Vitals Vital Signs Date Time Temp Pulse Resp B/P (MAP) Pulse Ox O2 Delivery O2 Flow Rate FiO2 06/20/17 06:03 97.7 90 20 164/77 (106) 98 06/19/17 17:51 98.1 102 19 142/74 (96) 97 Result Diagram: 06/17/17 0220 06/20/17 0910 Imaging Last Impressions Head CT 06/19/17 0000 Signed Impressions: Service Date/Time: Monday, June 19, 2017 12:53 - CONCLUSION: 1. Suboptimal exam secondary to motion artifact. 2. No evidence of hemorrhage or mass effect Negrito Shaw MD Objective Remarks GENERAL: No distress. HEAD: Normocephalic. NECK: Supple, trachea midline. No lymphadenopathy. EYES: No scleral icterus. No injection or drainage. CARDIOVASCULAR: Regular rate and rhythm without murmurs, gallops, or rubs. RESPIRATORY: Breath sounds equal bilaterally. No accessory muscle use. GASTROINTESTINAL: Abdomen soft, non-tender, nondistended. MUSCULOSKELETAL: No cyanosis, or edema. SKIN: Warm and dry. NEURO: No focal neurological deficits. PSYCH: Confused. Medications and IVs Current Medications Medications (Trade) Dose Ordered Sig/Yari Route Start Time Stop Time Status Last Admin (Ativan) 1 mg Q6H PRN PO 06/17/17 04:45 06/19/17 20:47 (Ativan Inj) 1 mg Q6H PRN IM 06/17/17 04:45 06/18/17 20:21 (Benadryl) 50 mg HS PRN PO 06/17/17 04:45 06/19/17 20:47 (Tylenol) 650 mg Q4H PRN PO 06/17/17 04:45 (Milk Of Magnesia Liq) 30 ml DAILY PRN PO 06/17/17 04:45 (Mag-Al Plus Susp Liq) 30 ml Q6H PRN PO 06/17/17 04:45 (Habitrol 21 Mg Patch.24 Hr) 1 patch DAILY PRN T-DERMAL 06/17/17 04:45 (Cogentin) 1 mg Q12H PRN PO 06/17/17 04:45 (Cogentin Inj) 1 mg Q12H PRN IM 06/17/17 04:45 Miscellaneous Information 1 DAILY T-DERMAL 06/17/17 09:00 (Vitamin B12) 1,000 mcg DAILY PO 06/18/17 09:00 06/20/17 07:53 (Vitamin D3) 2,000 units DAILY PO 06/18/17 09:00 06/20/17 07:53 (Abilify) 15 mg DAILY PO 06/20/17 09:00 06/20/17 07:53 A/P Problem List: (1) Rhabdomyolysis ICD Code: M62.82 - Rhabdomyolysis (2) Brief psychotic disorder ICD Code: F23 - Brief psychotic disorder (3) Bipolar affective disorder, current episode manic with psychotic symptoms ICD Code: F31.2 - Bipolar disorder, current episode manic severe with psychotic features Status: Acute Assessment and Plan 51-year-old female admitted secondary to acute psychotic disorder, we are consulted for rhabdomyolysis evaluation. Rhabdomyolysis Present status is mild. Etiology is uncertain. No signs of dehydration or renal failure. - Obtain repeat CK level tomorrow morning. - Follow CMP. Brief psychotic disorder/ Bipolar disorder/ Acute psychosis Neurology consult appreciated. Unable to go for MRI s/t stimulator. - Management per psychiatry. - follow up with neurology. - check a TSH. Hypokalemia Possibly s/t decreased PO intake. - replete and monitor. DVT prophylaxis: ambulatory Negrito Shaikh DO Jun 20, 2017 12:03
[2017-06-20] MEDS: POTASSIUM CHLORIDE 20 MEQ CONTROLLED RELEASE TAB PO SCH ×2 (12:32→14:56)
--- NOTE | 2017-06-20 14:16 | HHI.PYPN ---
Subjective Chief Complaint: psychosis/behavioral disorganization Remarks Patient was seen and case discussed with nursing. Patient remains acutely psychotic. She is having active conversations with another person during her interview. Behavior remains very bizarre where she would pause while walking during the hallway and look up and perform bizarre movements Mental Status Examination Appearance: Disheveled (grooming is improving) Consciousness: Alert Orientation: Person, Place (approximate) Motor Activity: Other (no motor abnormalities noted) Speech: Other (speech is more relevant today) Language: Perseveration (less perseverative) Fund of Knowledge: Inadequate Attention and Concentration: Inadequate Memory: Impaired (psychosis interferes) Mood: Anxious Affect: Anxious Thought Process & Associations: Disorganized, Other (somewhat more organized today but still fairly disorganized overall) Thought Content: Bizarre thinking, Thought blocking Hallucination Type: Other (again appears internally stimulated) Delusion Type: Bizarre Suicidal Ideation: No (unreliable to contract for safety) Homicidal Ideation: No (unreliable to contract for safety) Insight: Poor Judgment: Poor Results Labs Test 06/20/17 09:10 Blood Urea Nitrogen 11 MG/DL Creatinine 0.61 MG/DL Random Glucose 120 MG/DL Calcium Level 9.2 MG/DL Sodium Level 138 MEQ/L Potassium Level 3.3 MEQ/L Chloride Level 103 MEQ/L Carbon Dioxide Level 24.1 MEQ/L Anion Gap 11 MEQ/L Estimat Glomerular Filtration Rate 103 ML/MIN Total Creatine Kinase 1093 U/L Creatine Kinase MB 9.0 NG/ML Creatine Kinase MB % 0.8 % Vitals/IOs Vital Signs Date Time Temp Pulse Resp B/P (MAP) Pulse Ox O2 Delivery O2 Flow Rate FiO2 06/20/17 06:03 97.7 90 20 164/77 (106) 98 06/17/17 04:22 Room Air Assessment & Plan Problem List: (1) Brief psychotic disorder ICD Codes: F23 - Brief psychotic disorder Assessment & Plan Per recommendation of treating psychiatrist we will titrate Abilify over the weekend. Increase to 20 mg daily Justification for Cont. Inpt. Patient will decompensate in a less restrictive setting Request HC Surrog/Guard Advoc?: Yes Samir Kitchen DO Jun 20, 2017 14:16
[2017-06-20 18:16] VITALS: BP 145/81; PULSE 93; RESP 19; TEMP 98.5; O2SAT 97
[2017-06-20] MEDS: LORazepam 1 MG TAB PO PRN (20:07)
[2017-06-20] MEDS: diphenhydrAMINE HCL 50 MG CAP PO PRN (20:07)
[2017-06-21] MEDS: LORazepam 1 MG TAB PO PRN ×2 (02:21→09:45)
[2017-06-21 05:49] VITALS: BP 161/68; PULSE 89; RESP 17; TEMP 97.1; O2SAT 97
[2017-06-21] MEDS: CHOLECALCIFEROL (VIT D3) 1000 UNIT TAB PO SCH (08:47)
[2017-06-21] MEDS: CYANOCOBALAMIN 1,000 MCG TAB PO SCH (08:47)
[2017-06-21] MEDS: REMOVE OLD PATCH T-DERMAL SCH (09:00)
[2017-06-21 09:05] LABS: BICARBONATE 24.3 MEQ/L (21.0-32.0); CREATININE 0.62 MG/DL (0.50-1.00)
--- NOTE | 2017-06-21 14:36 | HHI.PYPN ---
Subjective Chief Complaint: psychosis/behavioral disorganization Remarks Patient was seen and case discussed with nursing. Patient remains very bizarre and internally preoccupied. Interview was had while she was speaking flakes off of the door. Earlier she urinated on herself. Only slept 2 hours. Mood can be labile. Mental Status Examination Appearance: Disheveled (grooming is improving) Consciousness: Alert Orientation: Person, Place (approximate) Motor Activity: Other (no motor abnormalities noted) Speech: Other (speech is more relevant today) Language: Perseveration (less perseverative) Fund of Knowledge: Inadequate Attention and Concentration: Inadequate Memory: Impaired (psychosis interferes) Mood: Anxious Affect: Labile, Anxious Thought Process & Associations: Disorganized, Other (somewhat more organized today but still fairly disorganized overall) Thought Content: Bizarre thinking, Thought blocking Hallucination Type: Other (again appears internally stimulated) Delusion Type: Bizarre Suicidal Ideation: No (unreliable to contract for safety) Homicidal Ideation: No (unreliable to contract for safety) Insight: Poor Judgment: Poor Results Labs Test 06/21/17 07:50 Blood Urea Nitrogen 9 MG/DL Creatinine 0.62 MG/DL Random Glucose 145 MG/DL Calcium Level 9.0 MG/DL Sodium Level 140 MEQ/L Potassium Level 3.7 MEQ/L Chloride Level 107 MEQ/L Carbon Dioxide Level 24.3 MEQ/L Anion Gap 9 MEQ/L Estimat Glomerular Filtration Rate 101 ML/MIN Total Creatine Kinase 791 U/L Creatine Kinase MB 7.2 NG/ML Creatine Kinase MB % 0.9 % Vitals/IOs Vital Signs Date Time Temp Pulse Resp B/P (MAP) Pulse Ox O2 Delivery O2 Flow Rate FiO2 06/21/17 05:49 97.1 89 17 161/68 (99) 97 Assessment & Plan Problem List: (1) Brief psychotic disorder ICD Codes: F23 - Brief psychotic disorder Assessment & Plan Consider adding a mood stabilizer such as Depakote or lithium Justification for Cont. Inpt. Patient would decompensate in a less restrictive setting Request HC Surrog/Guard Advoc?: Yes Samir Kitchen DO Jun 21, 2017 14:36
[2017-06-21 18:09] VITALS: BP 146/87; PULSE 101; RESP 17; TEMP 98.7; O2SAT 97
[2017-06-21] MEDS: diphenhydrAMINE HCL 50 MG CAP PO PRN (20:23)
[2017-06-22] MEDS: LORazepam 1 MG TAB PO PRN ×4 (00:19→23:46)
[2017-06-22 05:50] VITALS: BP 159/78; PULSE 88; RESP 18; TEMP 97.5; O2SAT 96
[2017-06-22] MEDS: CHOLECALCIFEROL (VIT D3) 1000 UNIT TAB PO SCH (07:53)
[2017-06-22] MEDS: CYANOCOBALAMIN 1,000 MCG TAB PO SCH (07:53)
[2017-06-22] MEDS: REMOVE OLD PATCH T-DERMAL SCH (09:00)
--- NOTE | 2017-06-22 12:02 | HHI.PYPN ---
Subjective Chief Complaint: psychosis/behavioral disorganization Remarks Patient seen and examined with nurse. Chart reviewed. Case discussed with nursing staff who reports patient remains quite bizarre and internally stimulated but is medication compliant. On my examination today, the patient is visibly responding to internal stimuli. She initially believes that she is on a cruise ship but later says that she is in a hospital that is also a [place]. She is able to give the correct date. She denies any suicidal or homicidal ideation but does endorse some auditory hallucinations that are deprecatory but not necessarily commanding her to hurt her boyfriend Javier. Affect remains somewhat labile. No side effects from medications. No physical complaints. Placed call to the patient's sister and healthcare surrogate, Lorraine as she had left a message requesting a call. We discussed patient's progress on the unit and treatment plan going forward. We discussed pharmacotherapeutic options and settled on a trial of lithium to augment patient's Abilify. We discussed [place] on . We discussed discharge planning. She thanks me for the call. Review of Systems ROS Limitations: Psychotic, Poor Historian Except as stated in HPI: all other systems reviewed are Neg Mental Status Examination Appearance: Disheveled (mild) Consciousness: Alert Orientation: Person, Date/Time Motor Activity: Other (no abnormal motor movements noted) Speech: Other (speech is fairly coherent and relevant today) Language: Perseveration (mild) Fund of Knowledge: Inadequate Attention and Concentration: Inadequate Memory: Impaired (psychosis interferes) Mood: Anxious Affect: Labile, Anxious Thought Process & Associations: Tangential Thought Content: Bizarre thinking, Thought blocking Hallucination Type: Other (visibly responding to internal stimuli) Delusion Type: Bizarre Suicidal Ideation: No Homicidal Ideation: No Insight: Poor Judgment: Poor Results Labs Labs reviewed. CK continues to trend downward. No evidence of renal compromise. Vitals/IOs Vital Signs Date Time Temp Pulse Resp B/P (MAP) Pulse Ox O2 Delivery O2 Flow Rate FiO2 06/22/17 05:50 97.5 88 18 159/78 (105) 96 Assessment & Plan Problem List: (1) Bipolar disorder, current episode mixed, severe, with psychotic features ICD Codes: F31.64 - Bipolar disorder, current episode mixed, severe, with psychotic features Assessment & Plan Current illness has the form of a severe Bipolar manic or mixed state with psychosis, responding only partially to Abilify monotherapy. Add lithium 300mg BID with plans to check a level Thursday. Renal and thyroid function intact. Check CK and BMP in morning. Continue to monitor on high acuity unit. Continue other medications and care as ordered. Justification for Cont. Inpt. Medication changes. Impairment in reality construction. High risk for decompensation in less restrictive environment. Discharge Planning Pending psychiatric stabilization. Anticipate patient will require at least an additional 5-7 inpatient days for adequate stabilization for safe discharge. Request HC Surrog/Guard Advoc?: Yes Brandan Stephens MD Jun 22, 2017 12:02
[2017-06-22 17:06] VITALS: BP 178/92; PULSE 97; RESP 18; TEMP 98.2; O2SAT 97
[2017-06-22 17:45] VITALS: BP 178/92; PULSE 97; RESP 18; TEMP 98.2; O2SAT 97
[2017-06-22] MEDS: LITHIUM CARBONATE 300 MG TAB PO SCH (20:05)
[2017-06-22] MEDS: diphenhydrAMINE HCL 50 MG CAP PO PRN (20:05)
[2017-06-23 05:59] VITALS: BP 151/69; PULSE 88; RESP 16; TEMP 97.3; O2SAT 100
[2017-06-23] MEDS: CYANOCOBALAMIN 1,000 MCG TAB PO SCH (09:00)
[2017-06-23] MEDS: LITHIUM CARBONATE 300 MG TAB PO SCH ×2 (09:00→21:23)
[2017-06-23] MEDS: REMOVE OLD PATCH T-DERMAL SCH (09:00)
[2017-06-23] MEDS: CHOLECALCIFEROL (VIT D3) 1000 UNIT TAB PO SCH (09:00)
--- NOTE | 2017-06-23 12:41 | HHI.PYPN ---
Subjective Chief Complaint: psychosis/behavioral disorganization Remarks Patient seen and examined with nurse. Chart reviewed. Case discussed with nursing staff reports the patient is complaining of auditory hallucinations of her mother whom she believes to be . She is paranoid about people from [facility]. Case discussed in treatment team. On my examination today, the patient is frankly responding to internal stimuli. Affect is somewhat labile. Behavior and thought process seem more disorganized today. She endorses auditory hallucinations that are arguing back and forth and commenting but does not report any command auditory hallucinations. She does indeed continue to report paranoia about people from [facility], although there are none on the unit presently to my knowledge. She endorses suicidal ideation and cannot contract for safety. When I ask how she might hurt herself on the unit, she makes a gesture as if garroting herself. I have ordered the patient placed with a 1:1 for safety. She complains of feeling somewhat tired and dizzy from medications. Denies other side effects from medications. No other physical complaints. Review of Systems ROS Limitations: Psychotic, Poor Historian Except as stated in HPI: all other systems reviewed are Neg Mental Status Examination Appearance: Disheveled Consciousness: Alert Orientation: Person Motor Activity: Other (no abnormal motor movements noted) Speech: Other (rambling, difficult to follow) Language: Other (inadequate ) Fund of Knowledge: Inadequate Attention and Concentration: Inadequate Memory: Impaired (psychosis interferes) Mood: Anxious, Other (dysphoric) Affect: Labile, Anxious Thought Process & Associations: Disorganized Thought Content: Bizarre thinking, Thought blocking Hallucination Type: Other (continues to respond to internal stimuli) Delusion Type: Bizarre Suicidal Ideation: Yes Suicidal Plan: Yes Suicidal Intention: Yes Homicidal Ideation: No Homicidal Plan: No Homicidal Intention: No Insight: Poor Judgment: Poor Results Labs Labs reviewed. BMP and CK are in process. Vitals/IOs Vital Signs Date Time Temp Pulse Resp B/P (MAP) Pulse Ox O2 Delivery O2 Flow Rate FiO2 06/23/17 05:59 97.3 88 16 151/69 (96) 100 Assessment & Plan Problem List: (1) Bipolar disorder, current episode mixed, severe, with psychotic features ICD Codes: F31.64 - Bipolar disorder, current episode mixed, severe, with psychotic features Assessment & Plan Initiate 1:1 obs for safety. Titrate Abilify to 30mg daily for mood stabilization and psychosis. If we do not begin to see consistent improvement with this agent soon, we may need to consider a different antipsychotic. Continue lithium as ordered with plans to check a level at the end of the week. Check orthostatics and institute fall precautions. Follow-up outstanding laboratories. Continue to monitor on the high acuity unit. Continue other medications and care as ordered. Case discussed with RN and chargeback analyst. Justification for Cont. Inpt. Concern for impairment in safety. Medication changes. Impairment in reality construction. High risk for decompensation in less restrictive environment. Discharge Planning Pending psychiatric stabilization. Request HC Surrog/Guard Advoc?: Yes Brandan Stephens MD Jun 23, 2017 12:41
--- NOTE | 2017-06-23 14:06 | PD.TTN ---
Patient Problems 1. Discharge planning 2. Medication compliance 3. Knowledge deficit 4. Lack of coping skills Progress Toward Goals Provider Present: Dr. Makenna Stephens Provider Input: Pt medication regiment has been adjusted to include Abilify. 06/23- Pt medication regiment has been adjusted to include [place]. Nurse(s) Present: Arnold Kim, [facility] Nurse(s) Input: 06/23- Pt continues to appear with internal stimuli, delusions, paranoia and is disorganized but she is taking care of self care and is medication compliant. Psychiatric Counselors Present: NU Styles Psych Therapist Input: Pt remains psychotic, disorganized, bizarre, cooperative and wandering on unit. She presents with limited insight into condition and need for care. Pt presents with limited coping and emotional regulation skills. She has been compliant with medication regiment. She will be going home with family after discharge. 06/23- Pt continues to appear disorganized, bizarre, psychotic, delusional, cooperative and intrusive. She remains with poor insight into condition and need for care. She has limited coping and emotional regulation skills. She is compliant with medication regiment at this time. Group Spec/RT/OT/COOK Present: DERRICK Baptiste Group Spec/RT/OT/COOK Input: Pt is unable to tolerate the group activities. 06/23- DERRICK Baptiste Pt attended the group activities over the weekend. She presents with calmer mood. Discharge Plan Pt will return home with her family after discharge and will be linked to outpatient follow up services. Documentation Scribe: NU Styles Jonathan LMHC Jun 23, 2017 14:05
[2017-06-23 14:53] LABS: BICARBONATE 24.6 MEQ/L (21.0-32.0); CALCIUM 9.2 MG/DL (8.5-10.1); CREATININE 0.79 MG/DL (0.50-1.00)
[2017-06-23 15:08] VITALS: BP_SYST 127; BP_SYST 129; BP_SYST 132; BP_DIAS 56; BP_DIAS 57; BP_DIAS 58; PULSE 75; RESP 18; TEMP 98; O2SAT 93
[2017-06-23] MEDS ORDERED: POTASSIUM CHLORIDE 20 MEQ CONTROLLED RELEASE TAB PO ONE (16:15)
[2017-06-23 18:27] VITALS: BP 132/57; PULSE 75; RESP 17; TEMP 98; O2SAT 96
[2017-06-23] MEDS: diphenhydrAMINE HCL 50 MG CAP PO PRN (21:23)
[2017-06-24 06:01] VITALS: BP 179/76; PULSE 89; RESP 20; TEMP 97.8; O2SAT 97
[2017-06-24] MEDS: LITHIUM CARBONATE 300 MG TAB PO SCH ×2 (08:44→20:23)
[2017-06-24] MEDS: ARIPiprazole 30 MG TAB PO SCH (08:44)
[2017-06-24] MEDS: CYANOCOBALAMIN 1,000 MCG TAB PO SCH (08:44)
[2017-06-24] MEDS: CHOLECALCIFEROL (VIT D3) 1000 UNIT TAB PO SCH (08:45)
[2017-06-24] MEDS: REMOVE OLD PATCH T-DERMAL SCH (09:00)
--- NOTE | 2017-06-24 09:44 | HHI.PYPN ---
Subjective Chief Complaint: psychosis/behavioral disorganization Remarks Patient seen and examined with nurse. Chart reviewed. Case discussed with nursing staff. No significant change overnight. No efforts at self-injury. Patient remains on a one-to-one. On my exam today, patient seems a little more organized versus yesterday. She tells me that she needs to "open the mattress and cut shapes out of it," unclear for what purpose. She endorses "unreal" AH, no CAH. Denies SI/HI today. Remains a little paranoid about [place] but says she knows of none on the unit. Complains of some dry mouth but otherwise has no side effects from medications. No new physical complaints otherwise. Review of Systems ROS Limitations: Psychotic, Poor Historian Except as stated in HPI: all other systems reviewed are Neg Mental Status Examination Appearance: Disheveled Consciousness: Alert Orientation: Person Motor Activity: Other (no motoric abnormalities noted) Speech: Other (somewhat rambling) Language: Other (inadequate ) Fund of Knowledge: Inadequate Attention and Concentration: Inadequate Memory: Impaired (psychosis continues to interfere) Mood: Other (mildly dysphoric) Affect: Blunt Thought Process & Associations: Disorganized Thought Content: Bizarre thinking, Thought blocking Hallucination Type: Auditory (noncommand) Delusion Type: Bizarre Suicidal Ideation: No Suicidal Plan: No Suicidal Intention: No Homicidal Ideation: No Homicidal Plan: No Homicidal Intention: No Insight: Poor Judgment: Poor Results Labs Item Value Date Time Sodium Level 140 MEQ/L 06/24/17 0935 Potassium Level 3.9 MEQ/L 06/24/17 0935 Chloride Level 106 MEQ/L 06/24/17 0935 Carbon Dioxide Level 24.3 MEQ/L 06/24/17 0935 Anion Gap 10 MEQ/L 06/24/17 0935 Blood Urea Nitrogen 12 MG/DL 06/24/17 0935 Creatinine 0.75 MG/DL 06/24/17 0935 Estimat Glomerular Filtration Rate 81 ML/MIN L 06/24/17 0935 Random Glucose 109 MG/DL H 06/24/17 0935 Total Creatine Kinase 687 U/L H 06/24/17 0935 Labs reviewed. GFR stable. CK continue slow downward trend. Vitals/IOs Vital Signs Date Time Temp Pulse Resp B/P (MAP) Pulse Ox O2 Delivery O2 Flow Rate FiO2 06/24/17 06:01 97.8 89 20 179/76 (046) 97 Assessment & Plan Problem List: (1) Bipolar disorder, current episode mixed, severe, with psychotic features ICD Codes: F31.64 - Bipolar disorder, current episode mixed, severe, with psychotic features Assessment & Plan Patient received 30 mg dose of Abilify today. Continue Abilify and lithium as ordered. Plan for lithium level Thursday morning, and I will check a BMP and CK then as well. If we do not begin to seem more consistent improvement in patient 's case, may need to consider a different antipsychotic. Biotene for dry mouth. Continue to monitor on the high acuity unit. Continue one-to-one overnight but if uneventful may consider discontinuing tomorrow. Continue other medications and care as ordered. Justification for Cont. Inpt. Impairment in reality construction. Monitoring for impairment in safety. High risk for decompensation in less restrictive environment. Discharge Planning Pending psychiatric stabilization. Conservative ELOS: 7-10 additional inpatient days. Request HC Surrog/Guard Advoc?: Yes Brandan Stephens MD Jun 24, 2017 09:44
[2017-06-24 12:18] LABS: BICARBONATE 24.3 MEQ/L (21.0-32.0); CALCIUM 9.3 MG/DL (8.5-10.1); CREATININE 0.75 MG/DL (0.50-1.00)
[2017-06-24] MEDS ORDERED: cloNIDine HCL 0.1 MG TAB PO PRN (16:00)
[2017-06-24] MEDS: LORazepam 1 MG TAB PO PRN (16:08)
[2017-06-24 17:16] VITALS: BP 133/67; PULSE 81; RESP 18; TEMP 98.3; O2SAT 98
[2017-06-25] MEDS: LORazepam 2 MG/ML VIAL IM PRN (02:48)
[2017-06-25 05:37] VITALS: BP 163/91; PULSE 94; RESP 18; TEMP 97.3; O2SAT 98
[2017-06-25] MEDS: CHOLECALCIFEROL (VIT D3) 1000 UNIT TAB PO SCH (08:05)
[2017-06-25] MEDS: ARIPiprazole 30 MG TAB PO SCH (08:05)
[2017-06-25] MEDS: CYANOCOBALAMIN 1,000 MCG TAB PO SCH (08:05)
[2017-06-25] MEDS: LITHIUM CARBONATE 300 MG TAB PO SCH ×2 (08:05→20:33)
[2017-06-25] MEDS: REMOVE OLD PATCH T-DERMAL SCH (08:06)
--- NOTE | 2017-06-25 12:10 | HHI.PYPN ---
Subjective Chief Complaint: psychosis/behavioral disorganization Remarks Patient seen and examined with nurse. Chart reviewed. Case discussed with nursing staff. Patient remains on one-to-one. She had an episode of enuresis overnight. She has been noted to be walking around the unit on her knees. On my examination today, the patient is somewhat more relevant in conversation but continues to exhibit some disorganized behaviors such as grasping at the air with her hands. She tells me that her AH are only intermittent now. She denies SI/HI. Denies side effects from medications. Denies dysuria but possibly has some urinary urgency, I will check UA. No other physical complaints. Patient's sister was appointed HCS by floor installer today. I did discuss patient's case with sister this afternoon over the phone. Family has noted slow but meaningful improvement with current regimen. I discuss pharmacotherapeutic options going forward. After discussion of possible med changes, sister's preference is to make no med change today and await lithium level ordered for tomorrow morning. Review of Systems ROS Limitations: Psychotic, Poor Historian Except as stated in HPI: all other systems reviewed are Neg Mental Status Examination Appearance: Other (casually dressed. Fair grooming.) Consciousness: Alert Orientation: Person Motor Activity: Other (no hand tremor, no dystonia, no dyskinesia noted.) Speech: Other (somewhat more coherent today) Language: Adequate Fund of Knowledge: Inadequate Attention and Concentration: Inadequate Memory: Impaired (psychosis continues to interfere) Mood: Other (calm) Affect: Blunt Thought Process & Associations: Tangential Thought Content: Bizarre thinking Hallucination Type: Auditory (intermittent) Delusion Type: None Suicidal Ideation: No Suicidal Plan: No Suicidal Intention: No Homicidal Ideation: No Homicidal Plan: No Homicidal Intention: No Insight: Poor Judgment: Poor Results Labs Labs reviewed. No new labs. Vitals/IOs Vital Signs Date Time Temp Pulse Resp B/P (MAP) Pulse Ox O2 Delivery O2 Flow Rate FiO2 06/25/17 05:37 97.3 94 18 163/91 (115) 98 Some intermittently elevated BPs, possibly related to psychosis. Patient has clonidine p.r.n. available. Assessment & Plan Problem List: (1) Bipolar disorder, current episode mixed, severe, with psychotic features ICD Codes: F31.64 - Bipolar disorder, current episode mixed, severe, with psychotic features Assessment & Plan Continue Abilify and lithium as ordered per HCS preference. To consider adjustment of lithium dosing based on level to be obtained tomorrow morning. To consider addition of a second antipsychotic. Continue to monitor on high acuity unit but discontinue one-to-one as patient is now consistently denying suicidal ideation. Continue other medications and care as ordered. Trend vitals; to consider reconsulting hospitalist for HTN if BP remains persistently elevated. Patient's case was presented and [place] [facility] and was placed in continuance for 4 weeks with sister to act as healthcare surrogate. Justification for Cont. Inpt. Impairment in reality construction. Risk for decompensation in less restrictive environment. Discharge Planning Pending psychiatric stabilization. Request HC Surrog/Guard Advoc?: Yes Brandan Stephens MD Jun 25, 2017 12:10
[2017-06-25 17:08] LABS: BACTERIA, URINE MOD /hpf; BILIRUBIN, URINE NEG (NEG); BLOOD, URINE NEG (NEG); CALCIUM OXALATE CRYSTALS,URINE OCC /hpf; GLUCOSE,URINE NEG (NEG); HYALINE CAST, URINE 2 /lpf (RARE); KETONE, URINE TRACE mg/dL (NEG); MUCUS URINE MANY /lpf (OCC); NITRITE,URINE NEG (NEG); PH, URINE 5.5 (5.0-8.5); SQUAMOUS EPITHELIAL CELL URINE 12 /hpf (0-5); URINE COLOR YELLOW (YELLW/STRAW); URINE LEUKOCYTE ESTERASE LARGE (NEG)
[2017-06-25 17:15] VITALS: BP 125/59; PULSE 83; RESP 18; TEMP 97.6; O2SAT 100
[2017-06-25] MEDS: diphenhydrAMINE HCL 50 MG CAP PO PRN (20:33)
[2017-06-26] MEDS: LORazepam 2 MG/ML VIAL IM PRN (00:37)
[2017-06-26 06:00] VITALS: BP 107/68; PULSE 92; RESP 16; TEMP 97.6; O2SAT 98
[2017-06-26] MEDS: ARIPiprazole 30 MG TAB PO SCH (08:07)
[2017-06-26] MEDS: LITHIUM CARBONATE 300 MG TAB PO SCH (08:07)
[2017-06-26] MEDS: CYANOCOBALAMIN 1,000 MCG TAB PO SCH (08:07)
[2017-06-26] MEDS: CHOLECALCIFEROL (VIT D3) 1000 UNIT TAB PO SCH (08:07)
[2017-06-26] MEDS: REMOVE OLD PATCH T-DERMAL SCH (08:09)
[2017-06-26] MEDS: NITROFURANTOIN MONOHYD MACROCR 100 MG CAP PO SCH ×2 (10:02→16:58)
[2017-06-26 10:55] LABS: BICARBONATE 25.9 MEQ/L (21.0-32.0); CALCIUM 9.8 MG/DL (8.5-10.1); CREATININE 0.87 MG/DL (0.50-1.00)
--- NOTE | 2017-06-26 13:17 | HHI.PYPN ---
Subjective Chief Complaint: BPAD mixed with psychosis Remarks Patient seen and examined with nurse. Chart reviewed. Case discussed with nursing staff. Patient noted to be less intrusive but remains internally stimulated. Case discussed in treatment team, and occupational therapy does note that the patient is able to attend limited group activities with some redirection. On my examination today, the patient tells me that she is ready to go on a cruise. She denies auditory hallucinations presently but does report visual hallucinations of "friends and family." Some disorganized behavior and gesturing noted. Denies SI/HI. Denies side effects from medications. No physical complaints. Spoke with HCS, Ms. Goodman. We discuss pharmacotherapeutic options going forward. In light of decreasing GFR and lack of significant positive response, lithium likely not worth continuing. Abilify likewise is not resulting in adequate control of psychosis. However, we have seen partial response to the mood stabilizer/antipsychotic combination, and so I am hopeful we are on the right track. Patient does have a mild but stable transaminitis, and so I think a Depakote trial is feasible and indicated presently. Given obesity, mild hyperglycemia, I would like to stay away from Seroquel/Zyprexa, and so we discuss instead utilizing Haldol for psychotic symptoms. Ms. Goodman is in agreement with treatment plan as outlined below. Review of Systems ROS Limitations: Psychotic, Poor Historian Except as stated in HPI: all other systems reviewed are Neg Mental Status Examination Appearance: Disheveled Consciousness: Alert Orientation: Person Motor Activity: Normal gait, Other (no motor abnormalities noted) Speech: Other (speech fairly coherent but thought process remains tangential) Language: Adequate Fund of Knowledge: Inadequate Attention and Concentration: Inadequate Memory: Impaired (psychosis continues to interfere) Mood: Other (remains calm) Affect: Blunt Thought Process & Associations: Tangential Thought Content: Bizarre thinking Hallucination Type: Visual, Other (appears internally preoccupied) Delusion Type: None Suicidal Ideation: No Suicidal Plan: No Suicidal Intention: No Homicidal Ideation: No Homicidal Plan: No Homicidal Intention: No Insight: Poor Judgment: Poor Results Labs Test 06/25/17 16:28 06/26/17 09:55 Urine Color YELLOW Urine Turbidity HAZY Urine pH 5.5 Urine Specific [place] 1.032 Urine Protein 30 mg/dL Urine Glucose (UA) NEG mg/dL Urine Ketones TRACE mg/dL Urine Occult Blood NEG Urine Nitrite NEG Urine Bilirubin NEG Urine Urobilinogen LESS THAN 2.0 MG/DL Urine Leukocyte Esterase LARGE Urine RBC 2 /hpf Urine WBC 5 /hpf Urine Squamous Epithelial Cells 12 /hpf Urine Calcium Oxalate Crystals OCC /hpf Urine Bacteria MOD /hpf Urine Hyaline Casts 2 /lpf Urine Mucus MANY /lpf Microscopic Urinalysis Comment CULTURE INDICATED Blood Urea Nitrogen 13 MG/DL Creatinine 0.87 MG/DL Random Glucose 132 MG/DL Calcium Level 9.8 MG/DL Sodium Level 138 MEQ/L Potassium Level 3.9 MEQ/L Chloride Level 104 MEQ/L Carbon Dioxide Level 25.9 MEQ/L Anion Gap 8 MEQ/L Estimat Glomerular Filtration Rate 68 ML/MIN Total Creatine Kinase 713 U/L Creatine Kinase MB 8.4 NG/ML Creatine Kinase MB % 1.2 % [place] Level 0.6 MEQ/L Labs reviewed. GFR trending downward and CK elevated but stable. UA concerning for UTI. Urine culture pending. Vitals/IOs Vital Signs Date Time Temp Pulse Resp B/P (MAP) Pulse Ox O2 Delivery O2 Flow Rate FiO2 06/26/17 06:00 97.6 92 16 107/68 (81) 98 Assessment & Plan Problem List: (1) Bipolar disorder, current episode mixed, severe, with psychotic features ICD Codes: F31.64 - Bipolar disorder, current episode mixed, severe, with psychotic features Assessment & Plan Discontinue lithium and Abilify. Initiate Depakote DR 500 mg twice daily for mood stabilization. Plan to check a Depakote and ammonia level middle of next week. Check LFTs Thursday and Thursday. Initiate Haldol 5 mg twice daily with plans to titrate over the weekend for psychosis. Macrobid for possible UTI. Follow-up urine culture. Trend CK and BMP over the weekend. Encouraged hydration. I will start some sliding scale insulin with Accu-Cheks for hyperglycemia. Continue to monitor on high acuity unit. Continue other medications and care as ordered. Justification for Cont. Inpt. Impairment in reality construction. Medication changes. High risk for decompensation in less restrictive environment. Discharge Planning Pending psychiatric stabilization. Request HC Surrog/Guard Advoc?: Yes Brandan Stephens MD Jun 26, 2017 13:17
--- NOTE | 2017-06-26 13:45 | PD.TTN ---
Patient Problems 1. Discharge planning 2. Medication compliance 3. Knowledge deficit 4. Lack of coping skills Progress Toward Goals Provider Present: Dr. Makenna Stephens Provider Input: Pt medication regiment has been adjusted to include Abilify. 06/23- Pt medication regiment has been adjusted to include [place]. 06/26- Pt medication regiment has been adjusted to include increase in [place]. Nurse(s) Present: Arnold Kim RN Nurse(s) Input: 06/23- Pt continues to appear with internal stimuli, delusions, paranoia and is disorganized but she is taking care of self care and is medication compliant. 06/26- Anaya Duong RN Pt continues to experience auditory hallucinations and appears disorganized, medication compliant and is no behavioral issue. Psychiatric Counselors Present: NU Styles Psych Therapist Input: Pt remains psychotic, disorganized, bizarre, cooperative and wandering on unit. She presents with limited insight into condition and need for care. Pt presents with limited coping and emotional regulation skills. She has been compliant with medication regiment. She will be going home with family after discharge. 06/23- Pt continues to appear disorganized, bizarre, psychotic, delusional, cooperative and intrusive. She remains with poor insight into condition and need for care. She has limited coping and emotional regulation skills. She is compliant with medication regiment at this time. 06/26- Pt continues to appear psychotic, disorganized, withdrawn to self, cooperative, appropriate and disoriented. Pt appears compliant with medication regiment. She has poor insight into condition and need for care. She appears with limited coping and emotional regulation skills. Pt will be discharged home with family. Group Spec/RT/OT/COOK Present: DERRICK Baptiste Group Spec/RT/OT/COOK Input: Pt is unable to tolerate the group activities. 06/23- DERRICK Baptiste Pt attended the group activities over the weekend. She presents with calmer mood. 06/26- JOYCE Marinelli Pt has been taken off 1:1 and is progressing, redirectable and tolerating groups better. Discharge Plan Pt will return home with her family after discharge and will be linked to outpatient follow up services. Documentation Scribe: NU Styles Jonathan LMHC Jun 26, 2017 13:45
[2017-06-26] MEDS ORDERED: DEXTROSE 50% IN WATER 50 ML VIAL(D50) IV PUSH PRN (16:15)
[2017-06-26] MEDS ORDERED: GLUCAGON 1 MG/ML VIAL OTHER PRN (16:15)
[2017-06-26 18:34] VITALS: BP 142/68; PULSE 77; RESP 18; TEMP 96.4; O2SAT 98
[2017-06-26] MEDS: HALOPERIDOL 5 MG TAB PO SCH (20:11)
[2017-06-26] MEDS: DIVALPROEX DR 500 MG TABEC PO SCH (20:12)
[2017-06-27] MEDS: INSULIN ASPART SUPPLEMENTAL SCALE SQ SCH ×2 (06:05→16:00)
[2017-06-27 06:22] VITALS: BP 135/67; PULSE 78; RESP 16; TEMP 97.3; O2SAT 97
[2017-06-27] MEDS: REMOVE OLD PATCH T-DERMAL SCH (07:10)
[2017-06-27] MEDS: DIVALPROEX DR 500 MG TABEC PO SCH ×2 (08:02→20:21)
[2017-06-27] MEDS: CYANOCOBALAMIN 1,000 MCG TAB PO SCH (08:02)
[2017-06-27] MEDS: CHOLECALCIFEROL (VIT D3) 1000 UNIT TAB PO SCH (08:02)
[2017-06-27] MEDS: HALOPERIDOL 5 MG TAB PO SCH ×2 (08:02→20:21)
[2017-06-27] MEDS: NITROFURANTOIN MONOHYD MACROCR 100 MG CAP PO SCH ×2 (08:02→17:43)
[2017-06-27 10:36] LABS: BICARBONATE 25.2 MEQ/L (21.0-32.0); CALCIUM 9.6 MG/DL (8.5-10.1); CREATININE 0.66 MG/DL (0.50-1.00)
--- NOTE | 2017-06-27 12:16 | HHI.PYPN ---
Subjective Chief Complaint: BPAD mixed with psychosis Remarks Pt seen and discussed with staff. Chart reviewed. She is confused and disorganized. She has been disrobing and running up and down hallways. She tried to shower with clothing on. She is compliant with medications. She denies SI/HI and denies discomfort or pain. Mental Status Examination Appearance: Disheveled Consciousness: Alert Orientation: Person Motor Activity: Normal gait, Other (no motor abnormalities noted) Speech: Other (speech fairly coherent but thought process remains tangential) Language: Adequate Fund of Knowledge: Inadequate Attention and Concentration: Inadequate Memory: Impaired (psychosis continues to interfere) Mood: Other (remains calm) Affect: Blunt Thought Process & Associations: Tangential Thought Content: Bizarre thinking Hallucination Type: Visual, Other (appears internally preoccupied) Delusion Type: None Suicidal Ideation: No Suicidal Plan: No Suicidal Intention: No Homicidal Ideation: No Homicidal Plan: No Homicidal Intention: No Insight: Poor Judgment: Poor Results Labs Test 06/27/17 09:30 Blood Urea Nitrogen 10 MG/DL Creatinine 0.66 MG/DL Random Glucose 131 MG/DL Calcium Level 9.6 MG/DL Sodium Level 137 MEQ/L Potassium Level 3.9 MEQ/L Chloride Level 104 MEQ/L Carbon Dioxide Level 25.2 MEQ/L Anion Gap 8 MEQ/L Estimat Glomerular Filtration Rate 94 ML/MIN Total Creatine Kinase 421 U/L Creatine Kinase MB 4.3 NG/ML Creatine Kinase MB % 1.0 % Date/Time Source Procedure Growth Status 06/25/17 16:28 Urine Clean Catch Urine Culture - Preliminary IMMATURE GROWTH - REINCUBATE Resulted Vitals/IOs Vital Signs Date Time Temp Pulse Resp B/P (MAP) Pulse Ox O2 Delivery O2 Flow Rate FiO2 06/27/17 06:22 97.3 78 16 135/67 (89) 97 Assessment & Plan Problem List: (1) Bipolar disorder, current episode mixed, severe, with psychotic features ICD Codes: F31.64 - Bipolar disorder, current episode mixed, severe, with psychotic features Assessment & Plan Continue current tx plan. Estimated LOS: days Justification for Cont. Inpt. impairments in self care and reality testing Request HC Surrog/Guard Advoc?: Yes Nimco Montanez MD Jun 27, 2017 12:16
[2017-06-27 18:17] VITALS: BP 123/59; PULSE 103; RESP 16; TEMP 98; O2SAT 98
[2017-06-27] MEDS: LORazepam 1 MG TAB PO PRN (18:27)
[2017-06-28] MEDS: INSULIN ASPART SUPPLEMENTAL SCALE SQ SCH ×2 (06:02→16:00)
[2017-06-28 06:12] VITALS: BP 125/58; PULSE 79; RESP 19; TEMP 96.6; O2SAT 98
[2017-06-28] MEDS: NITROFURANTOIN MONOHYD MACROCR 100 MG CAP PO SCH ×2 (09:00→17:33)
[2017-06-28] MEDS: CYANOCOBALAMIN 1,000 MCG TAB PO SCH (09:00)
[2017-06-28] MEDS: CHOLECALCIFEROL (VIT D3) 1000 UNIT TAB PO SCH (09:00)
[2017-06-28] MEDS: HALOPERIDOL 5 MG TAB PO SCH ×2 (09:00→20:39)
[2017-06-28] MEDS: REMOVE OLD PATCH T-DERMAL SCH (09:00)
[2017-06-28] MEDS: DIVALPROEX DR 500 MG TABEC PO SCH ×2 (09:00→20:37)
[2017-06-28 11:10] LABS: BICARBONATE 26.4 MEQ/L (21.0-32.0); CALCIUM 8.8 MG/DL (8.5-10.1); CREATININE 0.63 MG/DL (0.50-1.00)
--- NOTE | 2017-06-28 13:06 | HHI.PYPN ---
Subjective Chief Complaint: BPAD mixed with psychosis Remarks Pt seen and discussed with staff. She crushed and threw meds in the trash this morning and refused to take them when encouraged by RN. She has been isolative to her room with minimal interaction with staff. During interview, eye contact is better and thought process while disorganized, is a bit improved. She has not disrobed today. She states that she didn't take medications because they didn't look right and when staff took vital signs it activated her electrical current. No SI/HI Mental Status Examination Appearance: Disheveled Consciousness: Alert Orientation: Person Motor Activity: Normal gait, Other (no motor abnormalities noted) Speech: Other (speech fairly coherent but thought process remains tangential) Language: Adequate Fund of Knowledge: Inadequate Attention and Concentration: Inadequate Memory: Impaired (psychosis continues to interfere) Mood: Other (remains calm) Affect: Blunt Thought Process & Associations: Tangential Thought Content: Bizarre thinking Hallucination Type: Other (appears internally preoccupied) Delusion Type: Bizarre Suicidal Ideation: No Suicidal Plan: No Suicidal Intention: No Homicidal Ideation: No Homicidal Plan: No Homicidal Intention: No Insight: Poor Judgment: Poor Results Labs Test 06/28/17 10:00 Blood Urea Nitrogen 13 MG/DL Creatinine 0.63 MG/DL Random Glucose 129 MG/DL Calcium Level 8.8 MG/DL Sodium Level 140 MEQ/L Potassium Level 4.0 MEQ/L Chloride Level 107 MEQ/L Carbon Dioxide Level 26.4 MEQ/L Anion Gap 7 MEQ/L Estimat Glomerular Filtration Rate 99 ML/MIN Total Creatine Kinase 219 U/L Creatine Kinase MB 3.0 NG/ML Creatine Kinase MB % 1.4 % Date/Time Source Procedure Growth Status 06/25/17 16:28 Urine Clean Catch Urine Culture - Final 50-100,000 CFU/ML MIXED GRAM POSITIVE... Complete Vitals/IOs Vital Signs Date Time Temp Pulse Resp B/P (MAP) Pulse Ox O2 Delivery O2 Flow Rate FiO2 06/28/17 06:12 96.6 79 19 125/58 (80) 98 Assessment & Plan Problem List: (1) Bipolar disorder, current episode mixed, severe, with psychotic features ICD Codes: F31.64 - Bipolar disorder, current episode mixed, severe, with psychotic features Assessment & Plan Continue current tx plan. Encourage medication compliance. Estimated LOS: days Justification for Cont. Inpt. impairments in reality testing Request HC Surrog/Guard Advoc?: Yes Nimco Montanez MD Jun 28, 2017 13:06
[2017-06-28 15:39] VITALS: BP 132/67; PULSE 84; RESP 18; TEMP 98.5; O2SAT 97
[2017-06-29 05:55] VITALS: BP 98/54; PULSE 65; RESP 19; TEMP 98.4; O2SAT 98
[2017-06-29] MEDS: INSULIN ASPART SUPPLEMENTAL SCALE SQ SCH ×2 (06:07→16:00)
[2017-06-29] MEDS: REMOVE OLD PATCH T-DERMAL SCH (09:00)
[2017-06-29] MEDS: CHOLECALCIFEROL (VIT D3) 1000 UNIT TAB PO SCH (09:16)
[2017-06-29] MEDS: DIVALPROEX DR 500 MG TABEC PO SCH ×2 (09:16→20:38)
[2017-06-29] MEDS: NITROFURANTOIN MONOHYD MACROCR 100 MG CAP PO SCH (09:16)
[2017-06-29] MEDS: CYANOCOBALAMIN 1,000 MCG TAB PO SCH (09:16)
[2017-06-29] MEDS: HALOPERIDOL 5 MG TAB PO SCH ×2 (09:17→20:39)
[2017-06-29 12:50] LABS: ALBUMIN 3.4 GM/DL (3.4-5.0); BICARBONATE 26.3 MEQ/L (21.0-32.0); CALCIUM 9.4 MG/DL (8.5-10.1); CREATININE 0.74 MG/DL (0.50-1.00); DIRECT BILIRUBIN ADULT 0.1 MG/DL (0.0-0.2)
[2017-06-29 12:53] LABS: INDIRECT BILIRUBIN 0.3 MG/DL (0.0-0.8); TOTAL BILIRUBIN ADULT 0.4 MG/DL (0.2-1.0); TOTAL PROTEIN 7.3 GM/DL (6.4-8.2)
--- NOTE | 2017-06-29 14:13 | HHI.PYPN ---
Subjective Chief Complaint: BPAD mixed with psychosis Remarks Patient seen and examined with nurse. Chart reviewed. Case discussed with RN. No problematic behaviors reported, although patient was apparently concerned that her mother had and was trying to talk to her from the next room this morning. On my exam, patient is calm. She is oriented x 3 today and seems fairly relevant in conversation. She does express some concern that her mother may be , although she has no evidence for this, however this is not terribly distressing for her. She tells me that she is sleeping better. She denies SI/HI. No side effects from medications. No physical complaints. Placed a call to patient's healthcare surrogate, Lorraine Goodman. She notes patient seemed a little better in visitation yesterday evening but could not tolerate extended visit. We review urine culture and lab findings. We discuss treatment plan going forward. We discuss possibility of convalescent stay, e.g. in SNF, if patient has benefits for this. She thanks me for the call. Review of Systems Except as stated in HPI: all other systems reviewed are Neg Mental Status Examination Appearance: Other (fair grooming) Consciousness: Alert Orientation: Person, Place, Date/Time Motor Activity: Normal gait, Other (no hand tremor, no cogwheeling, no other motor abnormalities noted.) Speech: Slow (but otherwise fairly coherent) Language: Adequate Fund of Knowledge: Inadequate Attention and Concentration: Inadequate Memory: Impaired (some degree of confabulation but seems to be improving) Mood: Other (calm) Affect: Blunt Thought Process & Associations: Other (fairly linear today) Thought Content: Bizarre thinking Hallucination Type: None Delusion Type: Other (some bizarre ideation) Suicidal Ideation: No Suicidal Plan: No Suicidal Intention: No Homicidal Ideation: No Homicidal Plan: No Homicidal Intention: No Insight: Poor Judgment: Poor Results Labs Test 06/29/17 12:03 Blood Urea Nitrogen 12 MG/DL Creatinine 0.74 MG/DL Random Glucose 170 MG/DL Total Protein 7.3 GM/DL Albumin 3.4 GM/DL Calcium Level 9.4 MG/DL Alkaline Phosphatase 89 U/L Aspartate Amino Transf (AST/SGOT) 18 U/L Alanine Aminotransferase (ALT/SGPT) 42 U/L Total Bilirubin 0.4 MG/DL Direct Bilirubin 0.1 MG/DL Sodium Level 140 MEQ/L Potassium Level 3.7 MEQ/L Chloride Level 105 MEQ/L Carbon Dioxide Level 26.3 MEQ/L Anion Gap 9 MEQ/L Estimat Glomerular Filtration Rate 82 ML/MIN Indirect Bilirubin 0.3 MG/DL Total Creatine Kinase 141 U/L Date/Time Source Procedure Growth Status 06/25/17 16:28 Urine Clean Catch Urine Culture - Final 50-100,000 CFU/ML MIXED GRAM POSITIVE... Complete Labs reviewed. CK has normalized. Renal function fairly intact. Urine culture growing out mixed bernardo. Vitals/IOs Vital Signs Date Time Temp Pulse Resp B/P (MAP) Pulse Ox O2 Delivery O2 Flow Rate FiO2 06/29/17 05:55 98.4 65 19 98/54 (69) 98 Assessment & Plan Problem List: (1) Bipolar disorder, current episode mixed, severe, with psychotic features ICD Codes: F31.64 - Bipolar disorder, current episode mixed, severe, with psychotic features Assessment & Plan Continue Haldol titration as ordered. Continue Depakote as ordered with plans for Depakote level. Discontinue Macrobid as urine culture is growing out only mixed bernardo. Continue to monitor on the inpatient unit. Continue other medications and care as ordered. Justification for Cont. Inpt. Med changes anticipated. Resolving impairments in reality construction. Risk for decompensation in less restrictive environment. Discharge Planning Pending psychiatric stabilization. Request HC Surrog/Guard Advoc?: Yes Brandan Stephens MD Jun 29, 2017 14:13
[2017-06-29 17:04] VITALS: BP 122/83; PULSE 81; RESP 16; TEMP 97.4; O2SAT 98
[2017-06-30 05:41] VITALS: BP 127/62; PULSE 73; RESP 18; TEMP 97.6; O2SAT 98
[2017-06-30] MEDS: INSULIN ASPART SUPPLEMENTAL SCALE SQ SCH ×2 (06:07→16:00)
[2017-06-30] MEDS: CHOLECALCIFEROL (VIT D3) 1000 UNIT TAB PO SCH (09:00)
[2017-06-30] MEDS: REMOVE OLD PATCH T-DERMAL SCH (09:00)
[2017-06-30] MEDS: DIVALPROEX DR 500 MG TABEC PO SCH ×2 (09:00→20:29)
[2017-06-30] MEDS: CYANOCOBALAMIN 1,000 MCG TAB PO SCH (09:00)
[2017-06-30] MEDS: HALOPERIDOL 5 MG TAB PO SCH ×2 (09:00→20:30)
--- NOTE | 2017-06-30 10:06 | HHI.PYPN ---
Subjective Chief Complaint: BPAD mixed with psychosis Remarks Patient seen and examined with nurse. Chart reviewed. Case discussed with nursing staff. Case discussed in treatment team. On my examination today, patient once again seems more relevant in conversation. She complains of some mild anxiety but reports no mood symptoms. She says that she is sleeping a good deal better. She denies any AVH. She denies any SI or HI. Denies side effects from medications. No physical complaints. Review of Systems Except as stated in HPI: all other systems reviewed are Neg Mental Status Examination Appearance: Other (grooming remains fair) Consciousness: Alert Orientation: Person, Place (at least) Motor Activity: Other (no hand tremor, no cogwheeling, no hypomimia, no other motor abnormalities noted) Speech: Unremarkable Language: Adequate Fund of Knowledge: Adequate Attention and Concentration: Adequate Memory: Unremarkable Mood: Other (calm) Affect: Blunt Thought Process & Associations: Linear Thought Content: Appropriate Hallucination Type: None Delusion Type: None, Other (some bizarre ideation) Suicidal Ideation: No Suicidal Plan: No Suicidal Intention: No Homicidal Ideation: No Homicidal Plan: No Homicidal Intention: No Insight: Poor Judgment: Poor Results Labs Test 06/29/17 12:03 Blood Urea Nitrogen 12 MG/DL Creatinine 0.74 MG/DL Random Glucose 170 MG/DL Total Protein 7.3 GM/DL Albumin 3.4 GM/DL Calcium Level 9.4 MG/DL Alkaline Phosphatase 89 U/L Aspartate Amino Transf (AST/SGOT) 18 U/L Alanine Aminotransferase (ALT/SGPT) 42 U/L Total Bilirubin 0.4 MG/DL Direct Bilirubin 0.1 MG/DL Sodium Level 140 MEQ/L Potassium Level 3.7 MEQ/L Chloride Level 105 MEQ/L Carbon Dioxide Level 26.3 MEQ/L Anion Gap 9 MEQ/L Estimat Glomerular Filtration Rate 82 ML/MIN Indirect Bilirubin 0.3 MG/DL Total Creatine Kinase 141 U/L Date/Time Source Procedure Growth Status 06/25/17 16:28 Urine Clean Catch Urine Culture - Final 50-100,000 CFU/ML MIXED GRAM POSITIVE... Complete Labs reviewed. Vitals/IOs Vital Signs Date Time Temp Pulse Resp B/P (MAP) Pulse Ox O2 Delivery O2 Flow Rate FiO2 06/30/17 05:41 97.6 73 18 127/62 (83) 98 Assessment & Plan Problem List: (1) Bipolar disorder, current episode mixed, severe, with psychotic features ICD Codes: F31.64 - Bipolar disorder, current episode mixed, severe, with psychotic features Assessment & Plan Patient continues to improve with Depakote/Haldol regimen. Continue Haldol titration as ordered. Continue Depakote as ordered and plan to check a Depakote and ammonia level as well as a set of LFTs in the morning. Continue to monitor on an inpatient unit. Continue other medications and care as ordered. Justification for Cont. Inpt. Risk for decompensation in less restrictive environment. Discharge Planning Pending psychiatric stabilization. Request HC Surrog/Guard Advoc?: Yes Brandan Stephens MD Jun 30, 2017 10:06
--- NOTE | 2017-06-30 10:45 | PD.TTN ---
Patient Problems 1. Discharge planning 2. Medication compliance 3. Knowledge deficit 4. Lack of coping skills Progress Toward Goals Provider Present: Dr. Makenna Stephens Provider Input: 06/30/2017 Patient has shown minimum improvement, and feel that patient might require Skill nursing prior to dc home with family Pt medication regiment has been adjusted to include Abilify. 06/23- Pt medication regiment has been adjusted to include [place]. 06/26- Pt medication regiment has been adjusted to include increase in [place]. Nurse(s) Present: Arnold Kim RN Nurse(s) Input: 06/23- Pt continues to appear with internal stimuli, delusions, paranoia and is disorganized but she is taking care of self care and is medication compliant. 06/26- Anaya Duong RN Pt continues to experience auditory hallucinations and appears disorganized, medication compliant and is no behavioral issue. Psychiatric Counselors Present: Jose Pineda [facility], Sarah Bone [facility] Psych Therapist Input: 06/30/2017; Counselor will pass to assign counselor information that doctor would like patient to be assess for short term placement to continue progress prior to dc home. Pt remains psychotic, disorganized, bizarre, cooperative and wandering on unit. She presents with limited insight into condition and need for care. Pt presents with limited coping and emotional regulation skills. She has been compliant with medication regiment. She will be going home with family after discharge. 06/23- Pt continues to appear disorganized, bizarre, psychotic, delusional, cooperative and intrusive. She remains with poor insight into condition and need for care. She has limited coping and emotional regulation skills. She is compliant with medication regiment at this time. 06/26- Pt continues to appear psychotic, disorganized, withdrawn to self, cooperative, appropriate and disoriented. Pt appears compliant with medication regiment. She has poor insight into condition and need for care. She appears with limited coping and emotional regulation skills. Pt will be discharged home with family. Group Spec/RT/OT/COOK Present: DERRICK Baptiste Group Spec/RT/OT/COOK Input: Pt is unable to tolerate the group activities. 06/23- DERRICK Baptiste Pt attended the group activities over the weekend. She presents with calmer mood. 06/26- JOYCE Marinelli Pt has been taken off 1:1 and is progressing, redirectable and tolerating groups better. Discharge Plan Pt will return home with her family after discharge and will be linked to outpatient follow up services. Documentation Scribe: NU Best Sandra LMHC Jun 30, 2017 10:45
[2017-06-30 17:47] VITALS: BP 126/56; PULSE 69; RESP 18; TEMP 98.2; O2SAT 97
[2017-07-01 05:41] VITALS: BP 146/71; PULSE 79; RESP 18; TEMP 98.1; O2SAT 97
[2017-07-01] MEDS: INSULIN ASPART SUPPLEMENTAL SCALE SQ SCH ×2 (06:56→16:00)
[2017-07-01] MEDS: CYANOCOBALAMIN 1,000 MCG TAB PO SCH (09:00)
[2017-07-01] MEDS: CHOLECALCIFEROL (VIT D3) 1000 UNIT TAB PO SCH (09:00)
[2017-07-01] MEDS: HALOPERIDOL 5 MG TAB PO SCH ×2 (09:00→20:13)
[2017-07-01] MEDS: REMOVE OLD PATCH T-DERMAL SCH (09:00)
[2017-07-01] MEDS: DIVALPROEX DR 500 MG TABEC PO SCH ×2 (09:00→20:13)
--- NOTE | 2017-07-01 12:32 | HHI.PYPN ---
Subjective Chief Complaint: BPAD mixed with psychosis Remarks Patient seen and examined with nurse. Chart reviewed. Case discussed with nursing staff reports that the patient is spending more time out of her room and seems more appropriate in conversation. She did reportedly experienced some auditory hallucinations overnight. On my examination today, the patient seems quite relevant and coherent. She describes her mood as "pretty good." She denies any audiovisual hallucinations. No SI or HI. Denies side effects from medications. No physical complaints. Review of Systems Except as stated in HPI: all other systems reviewed are Neg Mental Status Examination Appearance: Other (fair grooming) Consciousness: Alert Orientation: Person, Place Motor Activity: Other (no motor abnormalities noted) Speech: Unremarkable Language: Adequate Fund of Knowledge: Adequate Attention and Concentration: Adequate Memory: Unremarkable Mood: Other ("pretty good.") Affect: Blunt (somewhat more affective reactivity today) Thought Process & Associations: Linear Thought Content: Appropriate Hallucination Type: None Delusion Type: None, Other (some bizarre ideation) Suicidal Ideation: No Suicidal Plan: No Suicidal Intention: No Homicidal Ideation: No Homicidal Plan: No Homicidal Intention: No Insight: Poor Judgment: Poor Results Labs Item Value Date Time Aspartate Amino Transf (AST/SGOT) 17 U/L 07/01/17 1140 Alanine Aminotransferase (ALT/SGPT) 39 U/L 07/01/17 1140 Alkaline Phosphatase 92 U/L 07/01/17 1140 Ammonia 31 MCMOL/L 07/01/17 1140 Valproic Acid (Depakene) Level 63 MCG/ML 07/01/17 1140 Labs reviewed. Depakote level within the therapeutic range. Ammonia level not elevated. LFTs within normal limits. Vitals/IOs Vital Signs Date Time Temp Pulse Resp B/P (MAP) Pulse Ox O2 Delivery O2 Flow Rate FiO2 07/01/17 05:41 98.1 79 18 146/71 (96) 97 Assessment & Plan Problem List: (1) Bipolar disorder, current episode mixed, severe, with psychotic features ICD Codes: F31.64 - Bipolar disorder, current episode mixed, severe, with psychotic features Assessment & Plan Persistent positive response to Depakote/Haldol therapy. Into a new Haldol 10 mg twice daily. Continue Depakote as ordered. Continue to monitor on the inpatient unit, although we will try to transfer the patient to the lower acuity unit when a bed is available as I think she is now more appropriate for the milieu on the unit. Continue other medications and care as ordered. Justification for Cont. Inpt. Risk for decompensation in less restrictive environment. Discharge Planning Pending stabilization. Counselor to reach out the family to discuss discharge planning. Request HC Surrog/Guard Advoc?: Yes Brandan Stephens MD Jul 01, 2017 12:32
[2017-07-01 12:44] LABS: ALBUMIN 3.3 GM/DL (3.4-5.0); DIRECT BILIRUBIN ADULT 0.1 MG/DL (0.0-0.2)
[2017-07-01 12:45] LABS: INDIRECT BILIRUBIN 0.1 MG/DL (0.0-0.8); TOTAL BILIRUBIN ADULT 0.2 MG/DL (0.2-1.0); TOTAL PROTEIN 7.4 GM/DL (6.4-8.2)
[2017-07-01 17:13] VITALS: BP 136/63; PULSE 88; RESP 18; TEMP 97.7; O2SAT 98
[2017-07-02 06:03] VITALS: BP 119/55; PULSE 67; RESP 18; TEMP 98.1; O2SAT 97
[2017-07-02] MEDS: INSULIN ASPART SUPPLEMENTAL SCALE SQ SCH ×2 (07:45→16:40)
[2017-07-02] MEDS: REMOVE OLD PATCH T-DERMAL SCH (09:00)
[2017-07-02] MEDS: CYANOCOBALAMIN 1,000 MCG TAB PO SCH (09:29)
[2017-07-02] MEDS: DIVALPROEX DR 500 MG TABEC PO SCH ×2 (09:29→20:24)
[2017-07-02] MEDS: CHOLECALCIFEROL (VIT D3) 1000 UNIT TAB PO SCH (09:29)
[2017-07-02] MEDS: HALOPERIDOL 5 MG TAB PO SCH ×2 (09:29→20:24)
--- NOTE | 2017-07-02 17:20 | HHI.PYPN ---
Subjective Chief Complaint: BPAD mixed with psychosis Remarks Patient seen and examined in day area of the lower acuity 2600 unit. Chart reviewed. Case discussed with nursing staff. No behavioral issues noted. Patient tolerating 2600 milieu well. On my examination today, patient reports that she is feeling improved. She reports that her mood is fairly good. She denies any audiovisual hallucinations. She denies any suicidal or homicidal ideation. She denies any side effects from medications. She has no physical complaints. Placed a call to patient's healthcare surrogate to discuss the case. Left generic voicemail requesting a call back. Review of Systems Except as stated in HPI: all other systems reviewed are Neg Mental Status Examination Appearance: Appropriate Consciousness: Alert Orientation: Person, Place Motor Activity: Other (no abnormal motor movements noted) Speech: Unremarkable Language: Adequate Fund of Knowledge: Adequate Attention and Concentration: Adequate Memory: Unremarkable Mood: Appropriate Affect: Appropriate Thought Process & Associations: Intact, Linear Thought Content: Appropriate Hallucination Type: None Delusion Type: None, Other (some bizarre ideation) Suicidal Ideation: No Suicidal Plan: No Suicidal Intention: No Homicidal Ideation: No Homicidal Plan: No Homicidal Intention: No Insight: Fair Judgment: Adequate (fair) Results Labs Labs reviewed. Vitals/IOs Vital Signs Date Time Temp Pulse Resp B/P (MAP) Pulse Ox O2 Delivery O2 Flow Rate FiO2 07/02/17 06:03 98.1 67 18 119/55 (76) 97 Intake and Output 07/02/17 07/02/17 07/03/17 08:00 16:00 00:00 Intake Total 240 ml 240 ml Balance 240 ml 240 ml Assessment & Plan Problem List: (1) Bipolar disorder, current episode mixed, severe, with psychotic features ICD Codes: F31.64 - Bipolar disorder, current episode mixed, severe, with psychotic features Assessment & Plan Continue Depakote and Haldol as ordered. Patient seems to be doing well with current regimen. We could consider Haldol Decanoate, although there has been no evidence of efforts at medication nonadherence; I will offer this agent to the patient tomorrow should she wish it. Continue to monitor on the lower acuity unit. Continue other medications and care as ordered. Justification for Cont. Inpt. Risk for decompensation in less restrictive environment Discharge Planning Pending psychiatric stabilization. Possible discharge if not tomorrow then after the weekend. Request HC Surrog/Guard Advoc?: Yes Brandan Stephens MD Jul 02, 2017 17:20
[2017-07-02 17:35] VITALS: BP 132/68; PULSE 74; RESP 20; TEMP 97.6; O2SAT 95
[2017-07-03 06:16] VITALS: BP 133/60; PULSE 70; RESP 18; TEMP 97.7; O2SAT 97
[2017-07-03] MEDS: INSULIN ASPART SUPPLEMENTAL SCALE SQ SCH (07:00)
[2017-07-03] MEDS: HALOPERIDOL 5 MG TAB PO SCH (08:37)
[2017-07-03] MEDS: DIVALPROEX DR 500 MG TABEC PO SCH (08:37)
[2017-07-03] MEDS: CYANOCOBALAMIN 1,000 MCG TAB PO SCH (08:37)
[2017-07-03] MEDS: CHOLECALCIFEROL (VIT D3) 1000 UNIT TAB PO SCH (08:38)
[2017-07-03] MEDS: REMOVE OLD PATCH T-DERMAL SCH (09:00)
[2017-07-03] MEDS ORDERED: CHOL1000 PO (13:00)
[2017-07-03] MEDS ORDERED: DIVA500T PO (13:00)
[2017-07-03] MEDS ORDERED: VITA10002 PO (13:00)
[2017-07-03] MEDS ORDERED: HALO5TAB PO (13:00)
--- NOTE | 2017-07-03 13:00 | HHI.DS ---
Psychiatry Discharge Summary Inpatient Psychiatric care?: Yes Advance Directive: No Reason Not Provided: confused at this time Mental Health AdvanceDirective: No Health Care Proxy: No Admission Admission Date Jun 17, 2017 at 04:36 Admission Diagnosis: (1) Brief psychotic disorder ICD Code: F23 - Brief psychotic disorder Brief History Ms. Prajapati is a 51-year-old female with no known past psychiatric history who was brought into the ED by her family for psychiatric evaluation. Per the ED provider's note, patient's behavior has been deteriorating over the last week or so. Patient was Butts acted by the ED provider and admitted to the inpatient psychiatric unit. Reviewing the electronic medical record, I note this is patient's first visit to [facility].Patient seen and examined with nurse. Chart reviewed. Case discussed with nursing staff who reports the patient has been confused and frankly psychotic. She has been flapping her arms like wings on the unit. On my evaluation today, the patient is wandering around the unit in a dreamlike state. Affect is quite labile, and the patient becomes tearful at intervals for no discernible reason. She gesticulates with her arm as if performing semaphore while saying "international lifestyles of the famous, hurricane, stimulator." Patient appears internally stimulated, and when I ask about AVH, patient only replies "I need less color." She denies SI/ HI but seems unreliable to contract for safety in her present state. Thought process exceedingly disorganized, and it is difficult to ascertain whether there is delusional material underlying as a consequence of her degree of thought disorganization. In addition to the gesticulation with her arms, she is noted to wander around the unit backwards. She gives the date as "years" and the location as "[place]." Psychiatric interview is severely limited by her degree of thought disorganization. I am unable to obtain any past psychiatric, family, chemical dependency or social history from this patient at this time as a consequence of her thought disorganization. She does not verbalize any physical complaints. Tobacco Use In Past 30 Days: No Tobacco Past 30 Days Alcohol Use: Never Hospital Course Patient was admitted to a locked, inpatient psychiatric unit. A general medical consultation was obtained. A neurological consultation was obtained. An extensive medical and neurological workup was undertaken to explore possible organic causes for patient psychiatric symptoms, but this was unrevealing. Appropriate precautions were in place throughout patient's hospital stay. Patient was seen and examined on the unit by psychiatry and also visited by counselor. Psychotropic medications were adjusted. Patient tolerated medication changes well without side effects. Patient responded poorly to Abilify and lithium. She had a brisk and positive response to Haldol and Depakote with essentially complete remission of presenting psychiatric symptoms. Patient's behavior improved considerably with the benefit of pharmacologic treatment. There was no evidence of any suicidality or homicidality on the inpatient unit, although the patient did briefly require a one-to-one sitter for safety while she was disorganized early on in her admission. On the day of discharge: Patient seen and examined with nurse. Chart reviewed. Case discussed with nursing staff. No behavioral issues noted overnight. Case discussed in treatment team and therapists note that the patient has made marked progress on the inpatient unit and is much improved. On my examination today, patient reports that she feels very much improved versus admission and is requesting discharge from the inpatient psychiatric unit today. She denies any suicidal or homicidal ideation, intent or plan on direct questioning and contracts for safety. Mood is described as happy and I can elicit no depressive or hypomanic/manic symptoms. She denies any audiovisual hallucinations. I can elicit no delusional beliefs. There is no evidence of any impairment in reality construction at this time. She denies any side effects from medications. I did offer to initiate long-acting injectable Haldol Decanoate but the patient declines at this time. She has no physical complaints. She is agreeable to outpatient mental health follow-up. I have spoken with the patient's sister Lorraine Goodman on the day of discharge. She visited with the patient last night and found her improved. She is comfortable having the patient return home today. Suicide and violence risk assessment on day of discharge both suggest lower imminent risk, and the patient's level of function now is adequate for outpatient care. The patient has maximized benefit from this inpatient psychiatric hospital stay and will be discharged home today with psychiatric follow-up as arranged by counselor. Patient is also to follow-up with primary care. I have counseled the patient to abstain from any substances of abuse. I have counseled the patient regarding warning signs for need to return to the psychiatric emergency room as part of the general safety plan. I have completed further FMLA paperwork for patient for this admission on the day of discharge; original to patient, copy to chart. Results Blood Pressure 133 / 60 Vital Signs Date Time Temp Pulse Resp B/P (MAP) Pulse Ox O2 Delivery O2 Flow Rate FiO2 07/03/17 06:16 97.7 70 18 133/60 (84) 97 Laboratory Tests Test 07/01/17 11:40 Albumin 3.3 GM/DL (3.4-5.0) Laboratory Results Test 06/18/17 08:45 06/26/17 09:55 07/01/17 11:40 Cholesterol Level 181 MG/DL (120-200) HDL Cholesterol 45.9 MG/DL (40.0-60.0) Hemoglobin A1c 6.7 % (4.3-6.0) LDL Cholesterol 116 MG/DL (0-99) Triglycerides Level 98 MG/DL (42-150) [place] Level 0.6 MEQ/L (0.5-1.5) Valproic Acid (Depakene) Level 63 MCG/ML (50-100) Summary of Procedures EEG read as normal Imaging Last Impressions Head CT 06/19/17 0000 Signed Impressions: Service Date/Time: Monday, June 19, 2017 12:53 - CONCLUSION: 1. Suboptimal exam secondary to motion artifact. 2. No evidence of hemorrhage or mass effect Negrito Shaw MD Pending results at discharge: No Medications # of Antipsychotic meds at D/C: 1 Approp Antipsych med options 1 - Minimum of three failed multiple trials of monotherapy. 2 - Documented plan to taper to monotherapy due to previous use of multiple meds OR cross-taper in progress at D/C. 3 - Documentation of augmentation of Clozapine. 4 - Justification other than those listed in allowable values 1-3, document here : Discharge Discharge Date: Jul 03, 2017 Discharge Diagnosis: (1) Bipolar I disorder, most recent episode mixed, in remission Diagnosis: Principal ICD Code: F31.70 - Bipolar disorder, currently in remission, most recent episode unspecified Pt Condition on Discharge: Stable Discharge Disposition: Discharge Home Discharge Instructions Diet Instructions: As Tolerated, No Restrictions Activities you can perform: Weight Bearing as Shonna Scheduled Appointment: as per counselor's notes New Orders: VITAMIN B12 - 1 Month VITAMIN D,25-HYDROXY - 1 Month New Medications: Cholecalciferol (Gnp Vitamin D3 Extra Stre) 1,000 Unit Tab 2000 UNITS PO DAILY for Nutritional Supplement for 15 Days, TAB 1 Refill Cyanocobalamin (Vitamin B-12) 1,000 Mcg Tab 1000 MCG PO DAILY for Nutritional Supplement for 15 Days, #2 TAB [address] (Divalproex DR) 500 Mg Tabdr 500 MG PO BID for Mental Health for 15 Days, #30 TAB 1 Refill Haloperidol (Haloperidol) 5 Mg Tab 10 MG PO BID for Mental Health for 15 Days, #60 TAB 1 Refill Continued Medications: Cetirizine (Cetirizine) 10 Mg Tab 10 MG PO DAILY for Allergies, TAB 0 Refills Hydroxyzine Pamoate (Vistaril) 25 Mg Cap 25 MG PO TID PRN for ANXIETY, CAP 0 Refills Discontinued Medications: Bupropion HCl ER 12 HR (Wellbutrin SR 12 HR) 150 Mg Tab 150 MG PO Q12HR for Control Depression, TAB 0 Refills Discharge Time > 30 minutes Mental Status Examination Appearance: Appropriate Consciousness: Alert Orientation: x4 Motor Activity: Other (no motoric abnormalities noted. No hand tremor, no dystonias, no dyskinesias.) Speech: Unremarkable Language: Adequate Fund of Knowledge: Adequate Attention and Concentration: Adequate Memory: Unremarkable Mood: Appropriate Affect: Appropriate Thought Process & Associations: Intact, Logical, Goal directed, Linear Thought Content: Appropriate Hallucination Type: None Delusion Type: None Suicidal Ideation: No Suicidal Plan: No Suicidal Intention: No Homicidal Ideation: No Homicidal Plan: No Homicidal Intention: No Insight: Adequate Judgment: Adequate Discharge/Advance Care Plan Health Problems: (1) Bipolar disorder, current episode mixed, severe, with psychotic features Goals to promote your health * To prevent worsening of your condition and complications * To maintain your health at the optimal level Directions to meet your goals Take your medications as prescribed Follow your dietary instruction Follow activity as directed Keep your appointments as scheduled Take your immunizations and boosters as scheduled If your symptoms worsen call your PCP, if no PCP go to Urgent Care Center or Emergency Room For 24/ questions related to your inpatient stay or results of tests pending at discharge, please contact Dr. Brandan Stephens at Smoking is Dangerous to Your Health. Avoid second hand smoking Brandan Stephens MD Jul 03, 2017 13:00
--- NOTE | 2017-07-03 13:31 | PD.TTN ---
Patient Problems 1. Discharge planning 2. Medication compliance 3. Knowledge deficit 4. Lack of coping skills Progress Toward Goals Provider Present: Dr. Makenna Stephens Provider Input: 06/30/2017 Patient has shown minimum improvement, and feel that patient might require Skill nursing prior to dc home with family Pt medication regiment has been adjusted to include Abilify. 06/23- Pt medication regiment has been adjusted to include [place]. 06/26- Pt medication regiment has been adjusted to include increase in [place]. 07/03- Pt is being discharged today and will be linked with follow up services. Nurse(s) Present: Arnold Kim RN Nurse(s) Input: 06/23- Pt continues to appear with internal stimuli, delusions, paranoia and is disorganized but she is taking care of self care and is medication compliant. 06/26- Anaya Duong RN Pt continues to experience auditory hallucinations and appears disorganized, medication compliant and is no behavioral issue. 07/03- Twyla Nunes RN Pt is being discharged today. Psychiatric Counselors Present: Jose Pineda [facility], Sarah Bone [facility] Psych Therapist Input: 06/30/2017; Counselor will pass to assign counselor information that doctor would like patient to be assess for short term placement to continue progress prior to dc home. Pt remains psychotic, disorganized, bizarre, cooperative and wandering on unit. She presents with limited insight into condition and need for care. Pt presents with limited coping and emotional regulation skills. She has been compliant with medication regiment. She will be going home with family after discharge. 06/23- Pt continues to appear disorganized, bizarre, psychotic, delusional, cooperative and intrusive. She remains with poor insight into condition and need for care. She has limited coping and emotional regulation skills. She is compliant with medication regiment at this time. 06/26- Pt continues to appear psychotic, disorganized, withdrawn to self, cooperative, appropriate and disoriented. Pt appears compliant with medication regiment. She has poor insight into condition and need for care. She appears with limited coping and emotional regulation skills. Pt will be discharged home with family. 07/03- Pt will be discharged today to her family. She will be linked to outpatient follow up services and provided any necessary scripts. Group Spec/RT/OT/COOK Present: DERRICK Baptiste Group Spec/RT/OT/COOK Input: Pt is unable to tolerate the group activities. 06/23- DERRICK Baptiste Pt attended the group activities over the weekend. She presents with calmer mood. 06/26- JOYCE Marinelli Pt has been taken off 1:1 and is progressing, redirectable and tolerating groups better. 07/03- Pt attends group activities. She requires some assistance and her mood is somber at times. Discharge Plan SMA Pt will return home with her family after discharge and will be linked to outpatient follow up services. Documentation Scribe: Rukhsana Bone, [facility] Jul 03, 2017 13:31
== END 2017-07-03 16:00 | disposition home or self-care (01) | DRG 885 ==
LOC: NEPD 01:37 → NEDA 04:36 → H260 05:21 → H270 17:33 → H260 07-01 20:00
PROVIDERS: ADMIT Psychiatry & Neurology Psychiatry; ATTEND Psychiatry & Neurology Psychiatry
DX: F31.60 Bipolar disorder, current episode mixed, unspecified (principal); M62.82 Rhabdomyolysis; R45.851 Suicidal ideations; Z68.41 Body mass index [BMI] 40.0-44.9, adult; F41.9 Anxiety disorder, unspecified; E87.6 Hypokalemia; E53.8 Deficiency of other specified B group vitamins; R68.2 Dry mouth, unspecified; E66.9 Obesity, unspecified; R73.9 Hyperglycemia, unspecified; R74.0 Nonspecific elevation of levels of transaminase and lactic acid dehydrogenase [LDH]; M54.9 Dorsalgia, unspecified; G89.29 Other chronic pain
CPT/HCPCS: 70450; 80048; 80053; 80061; 80074; 80076; 80164; 80178; 80307; 81001; 82140; 82306; 82550; 82552; 82607; 82948; 83036; 84443; 84703; 85025; 85652; 86038; 86592; 86703; 87086; 93005; 95819; 96372; G0481; J1200; J1815; J2060; Q0163